=== PATIENT | female | born 1945 | race Caucasian/White ===

== ENCOUNTER 2024-08-31 14:57 | Emergency (ER) | payer MEDICARE, SELFPAY ==
[2024-08-31 15:10] VITALS: BP 121/92; PULSE 95; RESP 16; TEMP 36.6; O2SAT 99
--- NOTE | 2024-08-31 15:34 | ED.GENADULT ---
HPI - General Adult General Chief complaint: Allergic Reaction Stated complaint: Headache/Sore Throat Time Seen by Provider: 08/31/24 15:34 Source: patient Mode of arrival: ambulatory Limitations: no limitations History of Present Illness HPI narrative: 79-year-old female presented for complaint of heart racing about an hour prior to arrival. She attributes this to eating crab rangoon and/or drinking Coca-Cola. She states after her a 2nd crab rangoon and some cola, she felt heart racing, jittery, and the right side of the neck was 'thumping.' She also felt like the back of her tongue was tingling. Denies chest pain, shortness of breath, wheezing, lip, tongue, or throat swelling, shortness of breath nausea, vomiting, abdominal cramping or dizziness. Related Data Home Medications ?Medication ?Instructions ?Recorded ?Confirmed ?Last Taken ?Type alendronate 70 mg tablet 70 mg PO WEEKLY 08/31/24 08/31/24 Unknown History ketoconazole 2 % shampoo 1 applic topical Q14D 08/31/24 08/31/24 Unknown History Allergies Allergy/AdvReac Type Severity Reaction Status Date / Time codeine AdvReac Unknown Other Verified 08/31/24 15:06 Review of Systems Review of Systems: CONSTITUTIONAL: Denies body aches, fever, chills, or sweats. EYES: Denies visual changes, redness, or discharge. ENT: Denies rhinorrhea, congestion, sore throat, or otalgia. CARDIOVASCULAR: Denies chest pain, reports palpitations RESPIRATORY: Denies cough or dyspnea. GASTROINTESTINAL: Denies abdominal pain, nausea, vomiting, or diarrhea. NEUROLOGIC: Denies headache, numbness, tingling, or weakness. All systems reviewed & are unremarkable except as noted in HPI and below [facility] Comments At time of signature, I have reviewed and agree with nursing past medical, surgical, social and family history unless otherwise noted. Please see nursing chart for further information. There is no relevant family history pertinent to the presenting complaint Exam Narrative: GENERAL: Well-appearing, and in no acute distress. EYES: EOMI. No redness or drainage. Conjunctivae normal. ENT: Mucous membranes pink and moist. Throat normal. Uvula midline. NECK: Normal AROM. Supple. CHEST: No respiratory distress. Clear to auscultation. HEART: Irregular and tachycardic. No murmur appreciated. SKIN: Warm, dry, no rash. Capillary refill normal. Normal skin turgor. NEURO: No focal deficits. Alert and oriented x3. Gait steady. PSYCH: Normal affect. Course Course Emergency Course: Patient is aware of diagnosis, understands and agrees to treatment plan. Anticipatory guidance given. Patient agrees to follow-up as directed and is aware of reasons to seek care at the emergency department. Portions of this record may have been created with voice recognition software Level of Care: Express Care Visit Vital Signs Vital signs: Vital Signs Temperature 97.9 F 08/31/24 15:10 Pulse Rate 95 08/31/24 15:10 Respiratory Rate 16 08/31/24 15:10 Blood Pressure 121/92 H 08/31/24 15:10 Pulse Oximetry 99 08/31/24 15:10 Temperature 97.9 F 08/31/24 15:10 Pulse Rate 95 08/31/24 15:10 Respiratory Rate 16 08/31/24 15:10 Blood Pressure 121/92 H 08/31/24 15:10 Pulse Oximetry 99 08/31/24 15:10 Transfer Transfered to: [facility] Transportation: Other (Private vehicle) Transfer rationale: Pt is agreeable to transfer. Requests transfer to [facility] via private vehicle; declined ambulance. Risks of transportation reviewed with pt including injury, worsening of condition and . v/u. Friend will be driving pt; Report called to hospital, spoke with Dr Boyce, accepting physician. Pt is in stable condition at time of transfer. Advised to remain NPO and go directly to the hospital. Medical Decision Making MDM Narrative Medical decision making narrative: Results of EKG reviewed with patient. Atrial flutter rate 144. Advised ER transfer. Requests [facility]. Differential Diagnosis Differential Diagnosis: STEMI, AAA, PE, pneumothorax, cardiac tamponade, esophageal rupture, pneumonia, GERD, musculoskeletal pain, endocarditis, pericarditis, URI, bronchitis, anxiety, allergic reaction Vital Signs Vital Signs: Vital Signs Temperature 97.9 F 08/31/24 15:10 Pulse Rate 95 08/31/24 15:10 Respiratory Rate 16 08/31/24 15:10 Blood Pressure 121/92 H 08/31/24 15:10 Pulse Oximetry 99 08/31/24 15:10 Temperature 97.9 F 08/31/24 15:10 Pulse Rate 95 08/31/24 15:10 Respiratory Rate 16 08/31/24 15:10 Blood Pressure 121/92 H 08/31/24 15:10 Pulse Oximetry 99 08/31/24 15:10 reviewed ECG Data EKG #1: Attestation: I personally reviewed and interpreted this ECG as follows: (Atrial flutter, RVR rate 144, OH- QRS 84 QT/QTc 313/396) Discharge Plan Discharge Clinical Impression: Heart palpitations Patient Disposition: Acute Care Hospital Condition: Stable Patient Language: Belizean Prescriptions: No Action ketoconazole 2 % shampoo 1 applic TOPICAL Q14D alendronate 70 mg tablet 70 mg PO WEEKLY Follow-up/Referrals: PHYSICIAN,FABRICATOR [employer]NACE [Primary Care Provider] - Time of Disposition: 16:02
--- NOTE | 2024-08-31 15:40 | ECG_ITS ---
Test Date: 2024-08-31 15:45:35 Measurements Intervals [place] Rate: 144 P: 0 [place]: 0 QRS: 3 QRSD: 84 T: 45 QT: 313 QTc: 486 Interpretive Statements ATRIAL FLUTTER/TACHYCARDIA WITH RAPID VENTRICULAR RESPONSE CONSIDER INFERIOR INFARCT, AGE INDETERMINATE NONSPECIFIC ST & T-WAVE ABNORMALITY- LAT/HIGH LAT LEADS BASELINE ARTIFACT- II, III, AVF ABNORMAL ECG No previous ECG available for comparison Electronically Signed On 08-31-2024 16:26:33 CDT by Sami Ruiz D.O.
== END 2024-08-31 16:07 | disposition short-term general hospital (02) ==
PROVIDERS: Emergency Provider Nurse Practitioner Family
DX: R00.2 Palpitations (principal)
CPT/HCPCS: 93005; 93010; 99213; G0463

== ENCOUNTER 2024-08-31 16:28 | Emergency (ER) | payer MEDICARE, SELFPAY ==
--- NOTE | ~2024-08-31 | XR_ITS ---
CHEST RADIOGRAPH, PA AND LATERAL CLINICAL HISTORY: palpitations . COMPARISON: None available TECHNIQUE: PA and lateral views of the chest. FINDINGS The cardiomediastinal silhouette is unremarkable. The lungs are clear. Visualized osseous structures and soft tissues are unremarkable. IMPRESSION: No focal infiltrate or effusion. Reviewed, dictated and finalized at location A.
--- NOTE | 2024-08-31 16:31 | ECG_ITS ---
Test Date: 2024-08-31 16:38:03 Measurements Intervals [place] Rate: 82 P: 41 [place]: 181 QRS: -12 QRSD: 78 T: 14 QT: 350 QTc: 411 Interpretive Statements SINUS RHYTHM CONSIDER RIGHT VENTRICULAR CONDUCTION DELAY LOW QRS VOLTAGE IN PRECORDIAL LEADS VOLTAGE CRITERIA FOR LVH CONSIDER ANTERIOR INFARCT, AGE INDETERMINATE CONSIDER INFERIOR INFARCT, AGE INDETERMINATE BORDERLINE T WAVE ABNORMALITY- ANTERIOR LEADS BASELINE ARTIFACT- I, III, AVR, AVL, AVF ABNORMAL ECG Compared to ECG 08/31/2024 15:45:35 ATRIAL FLUTTER/TACHYCARDIA NO LONGER PRESENT Electronically Signed On 08-31-2024 16:42:33 CDT by Sami Ruiz D.O.
--- NOTE | 2024-08-31 17:28 | ED.ARRPALP ---
HPI - Arrhythmia/Palpitations General Chief Complaint: Arrhythmia/Palpitations <Renay Holman PA-C - Last Filed: 09/01/24 09:39> Stated Complaint: Sent from [facility]-Afib RVR-denies CP <Renay Holman PA-C - Last Filed: 09/01/24 09:39> Time Seen by Provider: 08/31/24 17:28 <Renay Holman PA-C - Last Filed: 09/01/24 09:39> Focused HPI: This is a 79 year old female that presents to the ER for palpitations. Reports felt like discomfort in her throat. Sundown like she could really feel her pulse going. This started this afternoon when she was about to eat lunch. She was seen at urgent care and sent to the ER for afib with RVR. No previous history of this. GENERAL: Elderly, well-nourished, and in no acute distress. HEAD: Normocephalic, atraumatic. CHEST: Clear to auscultation. ?No respiratory distress. HEART: Regular rate and rhythm.? NEURO: ?Alert and oriented x3. Patient screened in triage and initial orders placed.? ?Additional care and disposition to be based upon?diagnostic testing and treatment. <Renay Holman PA-C - Last Filed: 09/01/24 09:39> History of Present Illness HPI narrative: HPI as noted in medical screening exam. <Stefano Mendiola MD - Last Filed: 08/31/24 20:44> Related Data Home Medications: Home Medications ?Medication ?Instructions ?Recorded ?Confirmed ?Last Taken ?Type alendronate 70 mg tablet 70 mg PO WEEKLY 08/31/24 08/31/24 Unknown History ketoconazole 2 % shampoo 1 applic topical Q14D 08/31/24 08/31/24 Unknown History <Renay Holman PA-C - Last Filed: 09/01/24 09:39> Allergies/Adverse Reactions: Allergies Allergy/AdvReac Type Severity Reaction Status Date / Time codeine AdvReac Unknown Other Verified 08/31/24 15:06 <Renay Holman PA-C - Last Filed: 09/01/24 09:39> Review of Systems Review of Systems: All systems reviewed & are unremarkable except as noted in HPI and below <Stefano Mendiola MD - Last Filed: 08/31/24 20:44> PMFSH Past Medical History Medical History: Medical History No significant past medical history <Renay Holman PA-C - Last Filed: 09/01/24 09:39> Surgical History Surgical History: Surgical History No significant past surgical history <Renay Holman PA-C - Last Filed: 09/01/24 09:39> Social History Social History: Social History Smoking status: Never smoker Alcohol intake: never Substance use: never <Renay Holman PA-C - Last Filed: 09/01/24 09:39> Exam Narrative: GENERAL: Well-developed, well-nourished, and in no acute distress. HEAD: Normocephalic, atraumatic. EYES: PERRLA and EOMI. CHEST: Clear to auscultation. No respiratory distress. No wheezes rales or rhonchi HEART: Regular rate and rhythm. No murmur heard. Normal peripheral pulses. ABDOMEN: Soft, nontender, nondistended, normal active bowel sounds. EXTREMITIES: Normal range of motion. No edema. SKIN: Warm, dry, no rash. NEURO: Alert and oriented x3. No focal deficit. Moving all 4 limbs spontaneously PSYCH: Normal mood and affect. <Stefano Mendiola MD - Last Filed: 08/31/24 20:44> Course Course Emergency Course: 20:25 - Review of EKG done at urgent care shows patient was in atrial flutter with heart rate of 141 without ischemic changes. Repeat EKG today shows the patient was in sinus rhythm without ischemic changes. CBC unremarkable. Coags within normal limits. Chemistries normal. Chest x-ray unremarkable. CHADS2 Vasc score 3. HASBLED score 1. I shared decision-making conversation with the patient. She elected full dose aspirin. Will discharge with low-dose metoprolol and recommendation for primary care and cardiology follow-up. <Stefano Mendiola MD - Last Filed: 08/31/24 20:44> Vital Signs Vital signs: Vital Signs Temperature 97.5 F L 08/31/24 17:31 Pulse Rate 86 08/31/24 17:31 Respiratory Rate 16 08/31/24 17:31 Blood Pressure 128/76 08/31/24 17:31 Pulse Oximetry 100 08/31/24 17:31 Oxygen Delivery Room Air 08/31/24 17:31 Temperature 97.5 F L 08/31/24 17:31 Pulse Rate 72 08/31/24 21:20 Respiratory Rate 17 08/31/24 21:00 Blood Pressure 126/67 08/31/24 21:00 Pulse Oximetry 100 08/31/24 21:00 Oxygen Delivery Room Air 08/31/24 17:31 <Renay Holman PA-C - Last Filed: 09/01/24 09:39> Vital Signs Temperature 97.5 F L 08/31/24 17:31 Pulse Rate 86 08/31/24 17:31 Respiratory Rate 16 08/31/24 17:31 Blood Pressure 128/76 08/31/24 17:31 Pulse Oximetry 100 08/31/24 17:31 Oxygen Delivery Room Air 08/31/24 17:31 Temperature 97.5 F L 08/31/24 17:31 Pulse Rate 72 08/31/24 21:20 Respiratory Rate 17 08/31/24 21:00 Blood Pressure 126/67 08/31/24 21:00 Pulse Oximetry 100 08/31/24 21:00 Oxygen Delivery Room Air 08/31/24 17:31 <Stefano Mendiola MD - Last Filed: 08/31/24 20:44> MDM - Arrhythmia/Palpitations MDM Narrative Medical decision making narrative: Plan: Labs, EKG, rate control as indicated, reassess <Stefano Mendiola MD - Last Filed: 08/31/24 20:44> Differential Diagnosis Differential diagnosis: Likely palpitations, artial fibrillation, artial flutter, ventricular premature beats and other (Arrhythmia, metabolic abnormality, anemia, other) <Stefano Mendiola MD - Last Filed: 08/31/24 20:44> Lab Data Result diagrams: 08/31/24 17:51 08/31/24 17:51 <Renay Holman PA-C - Last Filed: 09/01/24 09:39> Labs: Lab Results 08/31/24 Range/Units 17:51 WBC 7.2 (4.5-10.0) K/mm3 RBC 4.36 (4.2-5.4) M/mm3 Hgb 13.8 (12.0-15.0) g/dL Hct 42.2 (37.0-47.0) % MCV 96.8 (80-100) fl MCH 31.7 (26-34) pg MCHC 32.7 (32-36) g/dl RDW 12.5 (11.5-14.5) % Plt Count 290 (150-375) k/mm3 MPV 10.6 H (7.4-10.4) fl Immature Gran % (Auto) 0.1 (0-0.5) % Neut % (Auto) 63.4 (45.5-73.1) % Lymph % (Auto) 27.4 (18.3-44.2) % [place] % (Auto) 7.6 (2.6-8.5) % Eos % (Auto) 0.8 (0-4.4) % Baso % (Auto) 0.7 (0.2-1.2) % Lymph # (Auto) 1.97 (0.9-3.2) K/mm3 [place] # (Auto) 0.6 (0.1-0.6) K/mm3 Eos # (Auto) 0.1 (0-0.3) K/mm3 Baso # (Auto) 0.1 (0.0-0.1) K/mm3 Abs Immat Gran (auto) 0.01 (0.00-0.031) K/mm3 Absolute Neuts (auto) 4.6 (1.3-6.7) K/mm3 Absolute Nucleated RBC 0.000 (0.0-0.012) K/mm3 Nucleated RBC % 0.0 (0.0-0.2) % PT 13.0 (11.1-14.7) Seconds INR 0.9 APTT 34.1 (22.3-36.8) Seconds Sodium 143 (137-145) mmol/L Potassium 3.7 (3.4-5.0) mmol/L Chloride 106 (98-107) mmol/L Carbon Dioxide 26 (22-30) mmol/L Anion Gap 11 (4-12) mmol/L BUN 13 (7-17) mg/dL Creatinine 0.71 (0.7-1.0) mg/dL Estim Creat Clear Calc 55 ml/min Estimated GFR > 60 (59 - ) Glucose 98 (65-110) mg/dL Calcium 9.4 (8.4-10.2) mg/dL Magnesium 2.2 (1.6-2.3) mg/dL Total Bilirubin 0.5 (0.2-1.3) mg/dL AST 29 (14-36) U/L ALT 21 (6-35) U/L Alkaline Phosphatase 63 (38-126) U/L Total Protein 8.0 (6.3-8.2) g/dL Albumin 4.7 (3.5-5.1) g/dL <Renay Holman PA-C - Last Filed: 09/01/24 09:39> Lab Results 08/31/24 Range/Units 17:51 WBC 7.2 (4.5-10.0) K/mm3 RBC 4.36 (4.2-5.4) M/mm3 Hgb 13.8 (12.0-15.0) g/dL Hct 42.2 (37.0-47.0) % MCV 96.8 (80-100) fl MCH 31.7 (26-34) pg MCHC 32.7 (32-36) g/dl RDW 12.5 (11.5-14.5) % Plt Count 290 (150-375) k/mm3 MPV 10.6 H (7.4-10.4) fl Immature Gran % (Auto) 0.1 (0-0.5) % Neut % (Auto) 63.4 (45.5-73.1) % Lymph % (Auto) 27.4 (18.3-44.2) % [place] % (Auto) 7.6 (2.6-8.5) % Eos % (Auto) 0.8 (0-4.4) % Baso % (Auto) 0.7 (0.2-1.2) % Lymph # (Auto) 1.97 (0.9-3.2) K/mm3 [place] # (Auto) 0.6 (0.1-0.6) K/mm3 Eos # (Auto) 0.1 (0-0.3) K/mm3 Baso # (Auto) 0.1 (0.0-0.1) K/mm3 Abs Immat Gran (auto) 0.01 (0.00-0.031) K/mm3 Absolute Neuts (auto) 4.6 (1.3-6.7) K/mm3 Absolute Nucleated RBC 0.000 (0.0-0.012) K/mm3 Nucleated RBC % 0.0 (0.0-0.2) % PT 13.0 (11.1-14.7) Seconds INR 0.9 APTT 34.1 (22.3-36.8) Seconds Sodium 143 (137-145) mmol/L Potassium 3.7 (3.4-5.0) mmol/L Chloride 106 (98-107) mmol/L Carbon Dioxide 26 (22-30) mmol/L Anion Gap 11 (4-12) mmol/L BUN 13 (7-17) mg/dL Creatinine 0.71 (0.7-1.0) mg/dL Estim Creat Clear Calc 55 ml/min Estimated GFR > 60 (59 - ) Glucose 98 (65-110) mg/dL Calcium 9.4 (8.4-10.2) mg/dL Magnesium 2.2 (1.6-2.3) mg/dL Total Bilirubin 0.5 (0.2-1.3) mg/dL AST 29 (14-36) U/L ALT 21 (6-35) U/L Alkaline Phosphatase 63 (38-126) U/L Total Protein 8.0 (6.3-8.2) g/dL Albumin 4.7 (3.5-5.1) g/dL <Stefano Mendiola MD - Last Filed: 08/31/24 20:44> Imaging Data Radiologist's impression: ITS Impressions Chest X-Ray 08/31/24 17:42 IMPRESSION: No focal infiltrate or effusion. <Renay Holman PA-C - Last Filed: 09/01/24 09:39> ECG Data EKG #1: Attestation: I personally reviewed and interpreted this ECG as follows: <Stefano Mendiola MD - Last Filed: 08/31/24 20:44> ECG completion date: 08/31/24 <Stefano Mendiola MD - Last Filed: 08/31/24 20:44> ECG completion time: 16:38 <Stefano Mendiola MD - Last Filed: 08/31/24 20:44> Prior ECG tracings: available for review <Stefano Mendiola MD - Last Filed: 08/31/24 20:44> Interpretation: Sinus rhythm, rate 82, normal axis, no ST segment elevations or T-wave inversions concerning for ischemia, normal intervals with QTC of 411. Compared to EKG done today at 15:45, atrial flutter is no longer present. <Stefano Mendiola MD - Last Filed: 08/31/24 20:44> Critical Care Time Critical Care Time Critical Care Time: No <Renay Holman PA-C - Last Filed: 09/01/24 09:39> Discharge Plan Discharge Clinical Impression: Heart palpitations Atrial flutter Qualifiers: Atrial flutter type: unspecified Qualified Code(s): I48.92 - Unspecified atrial flutter <Renay Holman PA-C - Last Filed: 09/01/24 09:39> Patient Disposition: Home <Renay Holman PA-C - Last Filed: 09/01/24 09:39> Condition: Stable <Renay Holman PA-C - Last Filed: 09/01/24 09:39> Instructions: Antibiotic Form, Atrial Flutter (ED), A-fib (Atrial Fibrillation) (ED) <Renay Holman PA-C - Last Filed: 09/01/24 09:39> Additional Instructions: You were seen in the emergency department. An EKG in Urgent Care showed atrial flutter. Your heart rhythm and rate is normal here. Your blood cell counts are normal. Your liver and kidney enzymes are normal. A chest x-ray was unremarkable. An EKG was not concerning for injury to the heart. I recommend metoprolol to control your heart rate and aspirin to reduce risk of stroke. I recommend following up with your primary care doctor and a surgical instrument repair specialist. If you develop chest pain, shortness of breath, loss of consciousness, or if you have other emergent concerns for life, limb, or eyesight, return to the emergency department. <Renay Holman PA-C - Last Filed: 09/01/24 09:39> Patient Language: Citizen Of [place] <Renay Holman PA-C - Last Filed: 09/01/24 09:39> Prescriptions: New metoprolol tartrate 25 mg tablet 12.5 mg PO BID Qty: 30 0RF aspirin 325 mg tablet 325 mg PO DAILY Qty: 60 0RF No Action ketoconazole 2 % shampoo 1 applic TOPICAL Q14D alendronate 70 mg tablet 70 mg PO WEEKLY <Renay Holman PA-C - Last Filed: 09/01/24 09:39> Follow-up/Referrals: Amauri Avina MD [Physician] - 1 Week Alves,Kodak Mcgovern MD [Non-Staff] - 2 Days PHYSICIAN,DRUM HANDLER [Primary Care Provider] - <Renay Holman PA-C - Last Filed: 09/01/24 09:39> Time of Disposition: 20:27 <Renay Holman PA-C - Last Filed: 09/01/24 09:39> 20:27 <Stefano Mendiola MD - Last Filed: 08/31/24 20:44>
[2024-08-31 17:31] VITALS: BP 128/76; PULSE 86; RESP 16; TEMP 36.4; O2SAT 100
--- OUTSIDE RECORDS SUMMARY | 2024-08-31 18:00 | XMS_ITS | Clinical Summary ---
Author Organization [facility] Address [address] [place] [address] Care Team Providers Care Wet Roller Name Role Phone Kodak Alves MD Primary Care Provider [phone] Source Comments [facility],non-owned Affiliates and Associated Physician Practices is amultiple site organization consisting of ambulatory clinics and hospital sitesin [place], [place]. This disclosure is being madepursuant to the Care Everywhere program and may not contain all information available regarding this patient. Last updated 18.[facility] Allergies No known active allergies Medications * Be aware that medications may not be up to date on this document. Alwaysverify current medications with the patient. Medication Sig Dispensed Refills Start Date End Date Status GLUCOSAMINE COMPLEX PO Take by mouth. Active ALEVE PO Take by mouth. Active norethindrone-ethinyl estradiol (FEMHRT 05/31) 1-5 MG-MCG tablet Take 1 Tab by mouth daily. 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 Pulse 70 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 Temperature - - Respiratory Rate - - Oxygen Saturation - - Inhaled Oxygen Concentration - - Weight 67.1 kg (148 lb) 08/30/2023 10:11 AM CDT Height 167.6 cm (5' 6 ) 08/30/2023 10:11 AM CDT Body Mass Index 23.89 08/30/2023 10:11 AM CDT Plan of Treatment Upcoming Encounters Date Type Department Care Team (Late st Contact Info) Description 09/01/2024 11:00 AM CDT Appointment [facility] [address] [place] [address] Health Maintenance Due Date Last Done Comments BONE DENSITY TESTING 1945 MEDICARE AWV 12 MONTHS 1945 HEPATITIS C SCREENING 08/22/1964 DTAP/TDAP/TD VACCINES (1 - Tdap) 1965 PNEUMOCOCCAL VACCINE 50+ (1 of 1 - PCV) 1996 ZOSTER VACCINE (1 of 2) 1996 Respiratory Syncytial Virus (RSV) Vaccine Pt: or over 60 yrs (1 - 1-dose 75+ series) 2021 COVID-19 VACCINE (2 - season) 2024 02/22/2021 DEPRESSION SCREENING 05/27/2024 INFLUENZA VACCINE (Season Ended) 2025 03/16/2021, 02/24/2018, 03/25/2017, Additional history exists HEPATITIS B VACCINE Aged Out No longe r eligible based on patient's age to complete this topic HIB VACCINE Aged Out No longer eligi ble based on patient's age to complete this topic HPV VACCINE Aged Out No longer eligi ble based on patient's age to complete this topic MENINGOCOCCAL (Group B) VACCINE SHARED DECISION-MAKING Aged Out No longer eligible based on patient's age to complete this topic MENINGOCOCCAL GROUPS A/C/Y/W VACCINE Aged Out No longer eligible based on patient's age to complete this topic Care Teams Wet Roller Relationship Specialty Start Date End Date Kodak Alves MD [address] [place] [address] [address] [place] [address] PCP - General 01/03/10
--- OUTSIDE RECORDS SUMMARY | 2024-08-31 18:00 | XMS_ITS | Encounter Summary ---
Author Organization [facility] Address [address] [place] [address] Care Team Providers Care Engineer/Conductor Name Role Phone Kodak Alves MD Primary Care Provider [phone] Encounter Details Date Type Department Care Team (Late Contact Info) Description 04/04/2023 Lab Requisition [facility] - DermPath Lab [address] [place] [id number] Kelby Collazo MD [address] [place] [address] Social History Tobacco Use Types Packs/Day Years Used Date Smoking Tobacco: Never Alcohol Use Standard Drinks/Week Comments No 0 (1 standard drink = 0.6 oz pur e alcohol) Sex and Gender Information Value Date Recorded Sex Assigned at Not on file Gender Identity Not on file Sexual Orientation Not on file documented as of this encounter Plan of Treatment Upcoming Encounters Date Type Department Care Team (Late Contact Info) Description 09/01/2024 11:00 AM CDT Appointment [facility] [address] [place], [place] [id number] documented as of this encounter Procedures Procedure Name Priority Date/Time Associated Diagnosis Comments DERMATOPATHOLOGY Routine 04/03/2023 12:0 0 AM METER AND REGULATOR [employer]OP SUPERVISOR documented in this encounter Results * DERMATOPATHOLOGY (04/03/2023 12:00 AM METER AND REGULATOR SHOP SUPERVISOR) Case Report Dermatopathology Report Case: [id number] Authorizing Provider: Kelby Collazo MD Collected: 04/03/2023 12:00 AM Ordering Location: [facility] D[facility] Lab Received: 04/04/2023 04:34 PM Pathologist: Luisa Mittal MD Specimen: Skin, frontal scalp (part line) 1:47 PM METER AND REGULATOR [employer]OP SUPERVISOR DERMATOPATHOLOGY LABORATORY Final Diagnosis Specimen A. SKIN, frontal scalp (part line): BASAL CELL CARCINOMA, NODULAR TYPE (C44.41) 1:47 PM METER AND REGULATOR SHOP SUPERVISOR DERMATOPATHOLOGY LABORATORY Clinical History [facility] Path# [id number] 1:47 PM METER AND REGULATOR SHOP SUPERVISOR DERMATOPATHOLOGY LABORATORY Gross Description Specimen A: Received is one formalin filled container labeled with the patient's name and designated frontal scalp (part line). The specimen consists of a shave biopsy measuring 6x5x1 mm. Jar 0. 1:47 PM METER AND REGULATOR SHOP SUPERVISOR DERMATOPATHOLOGY LABORATORY Microscopic Description Specimen A. SKIN, frontal scalp (part line): Within the dermis there are aggregates of basaloid cells with a high nuclear to cytoplasmic ratio and peripheral palisading. 1:47 PM METER AND REGULATOR SHOP SUPERVISOR DERMATOPATHOLOGY LABORATORY Disclaimer An external and internal positive and negative controls are appropriate for the histochemical, immunohistochemical and immunofluorescence stain(s) in this case (if any), except where stated explicitly. The performance characteristics of the stain(s) cited in this report were developed and its performance characteristic determined by the Dermatopathology Laboratory at [facility], directed by Dr. Jeff Altamirano. These tests need not be, and therefore are not, approved by the [place] Food and Drug Administration. The tests are used for clinical purposes. Billing Codes Specimen Charges Stain Charges 58439 1 1:47 PM [facility] DERMATOPATH[facility]AT[facility] Embedded Images 1:47 PM [facility] DERMATOPATHOLOGY [facility]ORATORY Pathology/Cytolog y TISSUE SPECIMEN FROM SKIN / Unknown 04/03/2023 04/04/2023 4:34 PM METER AND REGULATOR SHOP SUPERVISOR Kelby Collazo MD LAB - PATHOLOGY/CYTO LOGY ORDERABLES DERMATOPATHOLOGY LABORATORY [facility] - Department of Dermatology [facility] Specialized Medicine [facility] [facility] [phone] documented in this encounter Visit Diagnoses Not on filedocumented in this encounter Care Teams Engineer/Conductor Relationship Specialty Start Date End Date Kodak Alves MD [facility] [place] [address] PCP - General 01/03/10 documented as of this encounter
--- OUTSIDE RECORDS SUMMARY | 2024-08-31 18:00 | XMS_ITS | CONTINUITY OF CARE DOCUMENT ---
Author Name charles lindseyjosé Address Unknown Organization [facility] Address [address] [place] [address] [address] [place] [address] Phone [phone] Care Team Providers Care Gate Cutter Name Role Phone Dennis SPRAGUE, Audelia Unavailable [phone] DANIELLE SPRAGUE, AVTAR Unavailable [phone] DANIELLE SPRAGUE, AVTAR Unavailable [phone] PROBLEMS Condition Status Date Provider Notes Palpitations active Mary Warren Arthritis active Audelia Collins MD Preoperative cardiovascular evaluation active Audelia Collins MD ENCOUNTERS Date Type Provider Location Encounter Diag nosis - In-person encounter Office Visit Audelia Collins MD [place] [facility] ArthritisPreoperative cardiovascular evaluation VITAL SIGNS Date Observation Value Provider Body Mass Index (Ratio) 22.24 kg/m2 Isiah Collins MD blood pressure, cuff size regular Ke sailaja Watson blood pressure, diastolic 80 mm[Hg] Zoltan Watson blood pressure, systolic 110 mm[Hg] Marcus Watson oxygen saturation, oximetry 98 % Eugenia Watson respiratory rate E&M 14 /min Eugenia nair pulse rate 72 /min Eugenia saeed weight E&M 142 [lb_av] Eugenia waller height E&M 67 [in_i] Eugenia De La [place] lder ALLERGIES Allergy Name Onset Date Reaction Criticality Status OPIOID High Criticality active HISTORY OF MEDICATION USE No Known Medication SOCIAL HISTORY Date Observation Value Provider social history E&M S moking History: Liban squires has never smoked. Erwin Mascorro social history reviewed E&M revi ewed - no changes required Erwin Mascorro smoking status Never smoker Eugenia pandya INSURANCE PROVIDERS Payer name Policy type / Coverage type [place] red republican ID [employer] Commercial insurance drew ri [id number] [place] Medicare [id number] ADVANCE DIRECTIVES Name Date DISCUSSED - NO DECISION MADE TREATMENT PLAN Date Name Performer [id number],S, Erwin De Jesus i [id number],S, Erwin De Jesus i [id number],S, Erwin De Jesus i Cardiology Erwin Mascorro Cardiology Erwin Mascorro Cardiology Erwin Mascorro Date Name Complete Echo
--- OUTSIDE RECORDS SUMMARY | 2024-08-31 18:01 | XMS_ITS | Continuity of Care Document ---
Author Organization [facility] Address [address] [place] [address] Phone Care Team Providers Care Information Tech Name Role Phone [facility] Unavailable Unavail able Mine David Unavailable Unavailable Procedures Procedure Date Progressive Lens, Polycarb Post-op Follow-up Visit Refraction Post-op Follow-up Visit Remove Cataract, Insert Lens Office/outpatient Visit, Est IOLMaster No Charge Glasses Check Vision Svcs Frames Purchases SV Poly Carb Sph [place] To +/- 4 010 Tax - Medical [facility] Frames Purchases Progressive Lens, Polycarb BF Polycarb Sphcyl [place] To +/-4d .12-2d Anti-reflective Coating Miscellaneous Vision Service - Supplies Lens-Index 1.54-1.79 Glass Office/outpatient Visit, Est Special Reports Or Forms Office Consultation Ophthalmoscopy Eye Exam & Treatment Eye Exam & Treatment Refraction Advance Directives Directive Yes / No Effective Date File Name No Information Encounters Encounter Description Practice Location Reason(s) For Visit Diagnoses Date Provider Providers Copied on [facility]counter [facility], [address], [place], [place], [address], [place] tel:[phone] [facility] No Information Evan-0 9-201 0 [facility] . [address], [address], [place], [place], [address], [place]. tel:[phone] Referring Provider: Sohail Harvey OD A, [address], [place], [place], [facility]. tel:[phone] g Provider: Mine David, [address] [place], [address]. tel:[phone] [facility], [address] [place] [address] [address], [place], [place], [address], [place] tel:[phone] [facility] No Information May-2 8-201 0 Harvey OD Sohail. [address] , [address], [place], [place], [facility], [place]. tel:[phone] [facility], [address] [place] [address] [address], [place], [place], [address], [place] tel:[phone] [facility] No Information September-1 2-201 0 Doisy Edsherine. [address] , [address], [place], [address], [place]. tel:[phone] [facility], [address] [place] [address] [address], [place], [place], [address], [place] tel:[phone] [facility] No Information May-1 1-201 0 Doisy Edward. [address] , [address], [place], [address], [place]. tel:[phone] Office/outpati ent Visit, [facility], [address] [place] [address] [address], [place], [place], [address], [place] tel:[phone] [facility] No Information Aug-2 6-201 0 Doisy Edsherine. [address] , [address], [place], [address], [place]. tel:[phone] Referring Provider: Johann Weinberg, [address], [place], [address]. tel:[phone] [facility], [address] [place] [address] [address], [place], [place], [address], [place] tel:[phone] [facility] No Information 0 Dilcia Wills. [address] , [address], [place], [address], [place]. tel:[phone] [facility], [address] [place] [address] [address], [place], [place], [address], [place] tel:[phone] [facility] No Information 0 [facility] . [address] [facility], [facility] [address], [place], [address], . tel:[phone] [facility], [address] [place] [address] [address], [place], [place], [address], [place] tel:[phone] [facility] No Information 9 [facility] . [address] [facility], [address], [place], [place], [address], . tel:[phone] Referring Provider: Sohail Weinberg, [address], [place], [address]. tel:[phone] g Provider: Mine David, [address] [place], [address]. tel:[phone] Office/outpati ent Visit, [facility], [address] [place] [address] [address], [place], [place], [address], [place] tel:[phone] [facility] No Information -200 9 Dilcia Wills. [address] , [address], [place], [address], [place]. tel:[phone] [facility], [address] [place] [address] [address], [place], [place], [address], tel:[phone] [place] [address] No Information Evan-1 2-200 9 Jordin Valderrama. [address] [place], [place], [facility], . tel:[phone] Office Consultation [facility], [address] [place] [address] [address], [place], [place], [address], tel:[phone] [facility] No Information Evan-0 8-200 9 Jordin Valderrama. [address] [place], [place], [facility], . tel:[phone] Referring Provider: Sohail Weinberg, [facility] [address], [place], [place], [facility]. tel:[phone] [facility], [address] [place] [address] [address], [place], [place], [address], [phone] [facility] No Information Evan-0 5-200 9 Harvey OD Sohail. [facility], [place], [place], [facility], . tel:[phone] [facility], [address] [place] [address] [address], [place], [place], [address], [phone] [facility] No Information May-0 8-200 8 Harvey OD Sohail. [facility] , [address], [place], [place], [facility], . tel:[phone] Family History Family Member Type Diagnosis Age At Onset No Information Payers Payer name Insurance type Covered democrat ID Authoriza tion(s) No Information Social History Type Description Quantity Date Captured Comments Sex Female Smoking Status No Information Chief Complaint And Reason For Visit No Information Reason For Referral Reason For Referral No Information History Of Present Illness Encounter Date Complaint History Of Prese nt Illness No Information Functional Status Date Functional Assessmen t No Information Instructions Date Instruction Additional Infor mation No Information Assessments Type Assessment Date No Information Patient Care Teams Name Effective Dates (start - stop) Status Members No Information
--- OUTSIDE RECORDS SUMMARY | 2024-08-31 18:01 | XMS_ITS | Data Portability ---
Author Organization [place] [facility], Main Office Address [address] [place] [address] Care Team Providers Care Scrap Dealer Name Role Phone AVTAR ALVES Primary Care Provider AVTAR ALVES Referring Provider [phone] Assessment No assessment recorded. Plan of Treatment Reminders Order Date Submit Date Provider Last Modified By Organization Details Last Modified Time Details Appointments None recorded. Lab lipid panel, serum 024 ROSLYN [facility], [address] , [place], [address], 4 05:46:04 CMP, serum or plasma 024 ROSLYN [facility], [address], [place], [address], 4 05:46:06 vitamin D, 25-hydrox y, total, serum 024 [email or web address] [facility], [address] , [place], [address], 4 15:56:00 CBC w/ auto diff 024 [email or web address] [facility], [address], [place], [address], 4 15:56:00 vitamin B12, serum 024 ROSLYN [facility], [address] , [place], [address], 4 05:46:09 TSH + free T4, serum 024 024 ROSLYN [facility], [address], [place], [address], 4 05:46:05 Referral None recorded. Procedures None recorded. Surgeries None recorded. Imaging None recorded. Medication Orders None recorded. Patient TargetsNo targets recorded. Patient Instructions Encounter Date Encounter Id Patient Instructions Last Modified By Organization Details Last Modified Time 08/10/2022 [id number] dementia rating scale-2* Not available 08/10/2022 15:49:04 alcohol misuse* [email or web address] Not available 08/10/2022 15:49:04 depression screening* [email or web address] Not available 08/10/2022 15:49:04 Timed Up and Go test (TUG)* [email or web address] Not available 08/10/2022 15:49:04 multi-dimensiona l health assessment questionnaire* Not available 08/10/2022 15:49:04 Personalized Hea lth Plan and Screening Recommendations Advance Directives - Do you have one? Yes Advance Directives - Do we have your advance directive on file in your health record? No, please bring in a copy at your earliest convenience Primary Prevention/Interven tion (prevents or decreases the chance of common diseases from occurring) Smoking Risk: Non Smoker Alcohol Misuse Screening: Negative Weight: Appropriate Physical activity: Need more exercise/physical activity Nutrition: Good Average Fall Risk (screened today): Low Intermediate Vaccines Pneumococcal: Ordered Recommended today Recommended today, but you have declined No further needed Influenza: Your next one in the fall of this year Chronic Disease Risks Stroke: Low Risk I have no recommendations Heart Attack: Low risk I have no recommendations Clogging of the Arteries: Low risk I have no recommendations Diabetes: Low Risk I have no recommendations Secondary Prevention/Interven tion (detects treatable diseases before they may cause symptoms, disability, or ) Breast Cancer Screening with mammogram: Cervical/Uterine/Ov americo Cancer Screening: No screening necessary Osteoporosis Screening: Date Screening Last Performed: Colon Cancer Screening: Colonoscopy Date Screening Last Performed: Eye Disease Screening: Dementia Risk: Low I have no recommendations Depression Screening: Negative [email or web address] Not available 08/10/2022 15:42:36 Medicare wellnes s evaluation risk assessment stable. Will check a Holter monitor as well as an echocardiogram to assess left ventricular function. Consider Cardiology evaluation. Echocardiogram for LV function for exertional dyspnea Holter monitor 48 hours minimum for palpitation Not available 08/10/2022 15:48:39 12/11/2022 [id number] Degenerative arthritis clinically stable. Continue on current Rx did briefly discuss the possible use of statin medications for marginally elevated cholesterol etc.. Otherwise is doing well. Continue on current Rx and follow-up in six months. [email or web address] Not available 12/11/2022 11:06:35 06/11/2023 [id number] Osteopenia clinically stable. Does need blood work since it has been over a year. Will check blood work consisting of CBC, CMP, lipid, thyroid and vitamin-D level. Continue on current Rx and follow-up in six months Portions of the record may have been created with voice recognition software. Occasional wrong-word or s ound-a-like substitutions may have occurred due to the inherent limitations of voice recognition software. Read the chart carefully and recognize, using context, where substitutions have occurred. [email or web address] Not available 06/11/2023 11:36:16 12/12/2023 [id number] Follow-up osteopenia. No interval complaints of any significant joint or other associated symptomatology. Has had pain discomfort in the left shoulder. Will obtain radiographic studies at this area. Likely is a subacromial bursitis. Will also set her up with some physical therapy for the shoulder. Is clinically stable otherwise. Was also instructed to start on some Aleve for the discomfort. Additional Orders and/or Directives: 1. Cologuard 2. Bone density scan 3. X-ray of the left shoulder 4. set up with physical therapy left shoulder pain Next Appointment: 6 Months Approximate Date: 06/09/2024 Portions of the record may have been created with voice recognition software. Occasional wrong-word or s ound-a-like substitutions may have occurred due to the inherent limitations of voice recognition software. Read the chart carefully and recognize, using context, where substitutions have occurred. [email or web address] Not available 12/12/2023 11:09:20 Reason for Referral None Reported. Results Created Date Observation Date Name Description Value Unit Range Abnormal Flag Note LastModifiedBy Organization Detail LastModifiedTime 06/09/19 23 06/10/2022 VITAM IN D,25- OH,TO EDUARDA,I A vitamin D,25-oh,tota l,ia 30 NG/mL 30-100 normal Vitam in D Statu s 25-OH Vitam in D: Defic iency : <20 ng/mL Insuf ficie ncy: 20 - 29 ng/mL Optim al: > or = 30 ng/mL For 25-OH Vitam in D testi ng on patie nts on D2-sanders pplem entat ion and patie nts for whom quant itati on of D2 and D3 fract ions is requi red, the [facility] Ass[facility] eD(TM ) 25-OH VIT D, (D2,D 3), LC/MS /MS is recom maggie d: order code 78400 (lovely ents >2yrs ). See Note 1 Note 1 For addit ional infor niki hawk refer to http: //lianet Lee stDia gnost ics.c om/fa q/FAQ 199 (This link is being provi ded for infor stas titus/ jing reza purpo ses only. ) Not Available [facility] [address] [place], [address], 06/10/2022 09:55:56 06/09/1906/10/2022 TSH TSH 3.44 mIU/L 0.40-4 .50 normal Not Available [facility] [address], [address], 06/10/2022 09:55:55 06/09/1906/10/2022 T4, FREE T4, free 1.0 NG/dL 0.8-1. 8 normal Not Available [facility] [address], [address], 06/10/2022 09:55:55 06/09/1906/10/2022 CBC (INCL UDES DIFF/ PLT) white blood cell count 4.9 thous and/u L 3.8-10 .8 normal Not Available [facility] [address] [place], [address], 06/10/2022 09:55:54 06/09/19 23 06/10/2022 CBC (INCL UDES DIFF/ PLT) red blood cell count 4.33 kerline on/uL 3.80-5 .10 normal Not Available [address], [address], 06/10/2022 09:55:54 06/09/19 23 06/10/2022 CBC (INCL UDES DIFF/ PLT) hemoglobin 13.4 g/dL 11.7-1 5.5 normal Not Available [address], [address], 06/10/2022 09:55:54 06/09/1906/10/2022 CBC (INCL UDES DIFF/ PLT) hematocrit 41.0 % 35.0-4 5.0 normal Not Available [address], [address], 06/10/2022 09:55:54 06/09/1906/10/2022 CBC (INCL UDES DIFF/ PLT) MCV 94.7 fL 80.0-1 00.0 normal Not Available [address], [address], 06/10/2022 09:55:54 06/09/1906/10/2022 CBC (INCL UDES DIFF/ PLT) MCH 30.9 pg 27.0-3 3.0 normal Not Available [address], [address], 06/10/2022 09:55:54 06/09/1906/10/2022 CBC (INCL UDES DIFF/ PLT) MCHC 32.7 g/dL 32.0-3 6.0 normal Not Available [address], [address], 06/10/2022 09:55:54 06/09/19 23 06/10/2022 CBC (INCL UDES DIFF/ PLT) RDW 12.5 % 11.0-1 5.0 normal Not Available [address], [address], 06/10/2022 09:55:54 06/09/1906/10/2022 CBC (INCL UDES DIFF/ PLT) platelet count 286 thous and/u L 140-40 0 normal Not Available [address], [address], 06/10/2022 09:55:54 06/09/1906/10/2022 CBC (INCL UDES DIFF/ PLT) MPV 10.5 fL 7.5-12 .5 normal Not Available [address], [address], 06/10/2022 09:55:54 06/09/1906/10/2022 CBC (INCL UDES DIFF/ PLT) absolute neutrophils 3009 cells /uL 1500-7 800 normal Not Available [address], [address], 06/10/2022 09:55:54 06/09/1906/10/2022 CBC (INCL UDES DIFF/ PLT) absolute lymphocytes 1485 cells /uL 850-39 00 normal Not Available [address], [address], 06/10/2022 09:55:54 06/09/1906/10/2022 CBC (INCL UDES DIFF/ PLT) absolute monocytes 319 cells /uL 200-95 0 normal Not Available [address], [address], 06/10/2022 09:55:54 06/09/1906/10/2022 CBC (INCL UDES DIFF/ PLT) absolute eosinophils 49 cells /uL 15-500 normal Not Available [address], [address], 06/10/2022 09:55:54 06/09/19 23 06/10/2022 CBC (INCL UDES DIFF/ PLT) absolute basophils 39 cells /uL 0-200 normal Not Available [facility] [address], [address], 06/10/2022 09:55:54 06/09/19 23 06/10/2022 CBC (INCL UDES DIFF/ PLT) neutrophils 61.4 % normal Not Available [facility] [address], [address], 06/10/2022 09:55:54 06/09/19 23 06/10/2022 CBC (INCL UDES DIFF/ PLT) lymphocytes 30.3 % normal Not Available [facility] [address], [address], 06/10/2022 09:55:54 06/09/19 23 06/10/2022 CBC (INCL UDES DIFF/ PLT) monocytes 6.5 % normal Not Available [facility] [address], [address], 06/10/2022 09:55:54 06/09/19 23 06/10/2022 CBC (INCL UDES DIFF/ PLT) eosinophils 1.0 % normal Not Available [facility] [address], [address], 06/10/2022 09:55:54 06/09/1906/10/2022 CBC (INCL UDES DIFF/ PLT) basophils 0.8 % normal Not Available [facility] [address], [address], 06/10/2022 09:55:54 06/09/1906/10/2022 COMPR EHENS DAVY METAB OLIC PANEL glucose 94 mg/dL 65-99 normal Fasti ng refer ence inter ned Not Available [facility] [address], [address], 06/10/2022 09:55:54 06/09/19 23 06/10/2022 COMPR EHENS DAVY METAB OLIC PANEL urea nitrogen (BUN) 15 mg/dL 7-25 normal Not Available [address], [address], 06/10/2022 09:55:54 06/09/19 23 06/10/2022 COMPR EHENS DAVY METAB OLIC PANEL creatinine 0.73 mg/dL 0.60-1 .00 normal Not Available [address], [address], 06/10/2022 09:55:54 06/09/19 23 06/10/2022 COMPR EHENS DAVY METAB OLIC PANEL eGFR 86 mL/mi n/1.7 3m2 > or = 60 normal The eGFR is based on the CKD-E PI 2020 equat ion. To calcu late the new eGFR from a previ ous Creat inine or Cysta tin C resul t, go to https ://jennifer hicks.shilpa fairchild/jeanie javier s/ kdoqi /gfr% 5Fcal culat or Not Available [address], [address], 06/10/2022 09:55:54 06/09/19 23 06/10/2022 COMPR EHENS DAVY METAB OLIC PANEL BUN/creatini ne ratio not applic able (calc ) 6-22 Not Available [address], [address], 06/10/2022 09:55:54 06/09/19 23 06/10/2022 COMPR EHENS DAVY METAB OLIC PANEL sodium 143 mmol/ L 135-14 6 normal Not Available [address], [address], 06/10/2022 09:55:54 06/09/19 23 06/10/2022 COMPR EHENS DAVY METAB OLIC PANEL potassium 4.7 mmol/ L 3.5-5. 3 normal Not Available [facility] [address] [place], [address], 06/10/2022 09:55:54 06/09/19 23 06/10/2022 COMPR EHENS DAVY METAB OLIC PANEL chloride 108 mmol/ L 98-110 normal Not Available [facility] [address], [address], 06/10/2022 09:55:54 06/09/19 23 06/10/2022 COMPR EHENS DAVY METAB OLIC PANEL carbon dioxide 29 mmol/ L 20-32 normal Not Available [address], [address], 06/10/2022 09:55:54 06/09/19 23 06/10/2022 COMPR EHENS DAVY METAB OLIC PANEL calcium 9.5 mg/dL 8.6-10 .4 normal Not Available [address], [address], 06/10/2022 09:55:54 06/09/19 23 06/10/2022 COMPR EHENS DAVY METAB OLIC PANEL protein, total 6.6 g/dL 6.1-8. 1 normal Not Available [address], [address], 06/10/2022 09:55:54 06/09/19 23 06/10/2022 COMPR EHENS DAVY METAB OLIC PANEL albumin 4.2 g/dL 3.6-5. 1 normal Not Available [facility] [address], [address], 06/10/2022 09:55:54 06/09/19 23 06/10/2022 COMPR EHENS DAVY METAB OLIC PANEL globulin 2.4 g/dL_ (calc ) 1.9-3. 7 normal Not Available [facility] [address], [address], 06/10/2022 09:55:54 06/09/19 23 06/10/2022 COMPR EHENS DAVY METAB OLIC PANEL albumin/glob ulin ratio 1.8 (calc ) 1.0-2. 5 normal Not Available [address], [address], 06/10/2022 09:55:54 06/09/19 23 06/10/2022 COMPR EHENS DAVY METAB OLIC PANEL bilirubin, total 0.6 mg/dL 0.2-1. 2 normal Not Available [address], [address], 06/10/2022 09:55:54 06/09/19 23 06/10/2022 COMPR EHENS DAVY METAB OLIC PANEL alkaline phosphatase 64 U/L 37-153 normal Not Available [address], [address], 06/10/2022 09:55:54 06/09/19 23 06/10/2022 COMPR EHENS DAVY METAB OLIC PANEL AST 21 U/L 10-35 normal Not Available [address], [address], 06/10/2022 09:55:54 06/09/19 23 06/10/2022 COMPR EHENS DAVY METAB OLIC PANEL ALT 18 U/L 6-29 normal Not Available [address], [address], 06/10/2022 09:55:54 06/09/19 23 06/10/2022 LIPID PANEL , STAND PJ cholesterol, total 235 mg/dL <200 high Not Available [address], [address], 06/10/2022 09:55:54 06/09/19 23 06/10/2022 LIPID PANEL , STAND PJ HDL cholesterol 64 mg/dL > or = 50 normal Not Available [address], [place], [address], 06/10/2022 09:55:54 06/09/19 23 06/10/2022 LIPID PANEL , STAND PJ triglyceride s 158 mg/dL <150 high Not Available [facility] [address], [address], 06/10/2022 09:55:54 06/09/19 23 06/10/2022 LIPID PANEL , STAND PJ LDL-choleste rol 142 mg/dL _(jose c) high Refer ence range : <100 Bhavya able range <100 mg/dL for prima ry preve ntion ; <70 mg/dL for patie nts with CHD or diabe tic patie nts with > or = 2 CHD risk facto rs. LDL-C is now calcu lated using the Ester n-Hop kins calcu brandon n, which is a valid ated novel codio [place] granti mckenzie phante r accur acy than the Fried gopal equat ion in the estim ation of LDL-C . Ester block SS et al. DEEPTI. 2013; 310(1 9): 2061- 2068 (http ://ed ucati on.Qu [employer]. com/f aq/FA Q164) Not Available [address], [address], 06/10/2022 09:55:54 06/09/1906/10/2022 LIPID PANEL , STAND PJ chol/HDLC ratio 3.7 (calc ) <5.0 normal Not Available [address], [address], 06/10/2022 09:55:54 06/09/1906/10/2022 LIPID PANEL , STAND PJ non HDL cholesterol 171 mg/dL _(jose c) <130 high For patie nts with diabe bill plus 1 major ASCVD risk facto r, treat ing to a non-H DL-C goal of <100 mg/dL (LDL- C of <70 mg/dL ) is consi dered a thera brigitte c optio n. Not Available [facility] [address] [address] [place], [address], 06/10/2022 09:55:54 07/26/19 24 07/27/2023 LIPID PANEL , STAND PJ cholesterol, total 232 mg/dL <200 high Not Available [facility] [address] [address] [place], [address], 07/27/2023 05:46:04 07/26/19 24 07/27/2023 LIPID PANEL , STAND PJ HDL cholesterol 60 mg/dL > or = 50 normal Not Available [facility] [address] [address] [place], [address], 07/27/2023 05:46:04 07/26/19 24 07/27/2023 LIPID PANEL , STAND PJ triglyceride s 111 mg/dL <150 normal Not Available [facility] [address] [address] [address], [place], [address], 07/27/2023 05:46:04 07/26/19 24 07/27/2023 LIPID PANEL , STAND PJ LDL-choleste rol 149 mg/dL _(jose c) high Refer ence range : <100 Bhavya able range <100 mg/dL for prima ry preve ntion ; <70 mg/dL for patie nts with CHD or diabe tic patie nts with > or = 2 CHD risk facto rs. LDL-C is now calcu lated using the Ester n-Hop kins calcu brandon n, which is a valid ated novel metho d provi mckenzie collins r accur acy than the Fried gopal equat ion in the estim ation of LDL-C . Ester block SS et al. DEEPTI. 2013; 310(1 9): 2061- 2068 (http ://ed ucati on.Qu Rio vazquez [employer].ios. com/f aq/FA Q164) Not Available [facility] [address] [address] [place], [address], 07/27/2023 05:46:04 07/26/19 07/27/2023 LIPID PANEL , STAND PJ chol/HDLC ratio 3.9 (calc ) <5.0 normal Not Available [address], [address], 07/27/2023 05:46:04 07/26/19 24 07/27/2023 LIPID PANEL , STAND PJ non HDL cholesterol 172 mg/dL _(jsoe c) <130 high For patie nts with diabe bill plus 1 major ASCVD risk facto r, treat ing to a non-H DL-C goal of <100 mg/dL (LDL- C of <70 mg/dL ) is consjulio ormeo n. Not Available [address], [address], 07/27/2023 05:46:04 07/26/19 24 07/27/2023 TSH+F REE T4 TSH 3.47 mIU/L 0.40-4 .50 normal Not Available [address], [address], 07/27/2023 05:46:05 07/26/19 24 07/27/2023 TSH+F REE T4 T4, free 1.0 NG/dL 0.8-1. 8 normal Not Available [address], [address], 07/27/2023 05:46:05 07/26/19 24 07/27/2023 COMPR EHENS DAVY METAB OLIC PANEL glucose 90 mg/dL 65-99 normal Fasti ng refer ence inter ned Not Available [address], [address], 07/27/2023 05:46:06 07/26/19 24 07/27/2023 COMPR EHENS DAVY METAB OLIC PANEL urea nitrogen (BUN) 19 mg/dL 7-25 normal Not Available [address], [address], 07/27/2023 05:46:06 07/26/19 24 07/27/2023 COMPR EHENS DAVY METAB OLIC PANEL creatinine 0.73 mg/dL 0.60-1 .00 normal Not Available [address], [address], 07/27/2023 05:46:06 07/26/19 24 07/27/2023 COMPR EHENS DAVY METAB OLIC PANEL eGFR 85 mL/mi n/1.7 3m2 > or = 60 normal Not Available [address], [address], 07/27/2023 05:46:06 07/26/19 24 07/27/2023 COMPR EHENS DAVY METAB OLIC PANEL BUN/creatini ne ratio SEE NOTE: (calc ) 6-22 Not Repor tyler: BUN and Creat inine are withi n refer ence range . Not Available [address], [address], 07/27/2023 05:46:06 07/26/19 24 07/27/2023 COMPR EHENS DAVY METAB OLIC PANEL sodium 142 mmol/ L 135-14 6 normal Not Available [address], [address], 07/27/2023 05:46:06 07/26/19 24 07/27/2023 COMPR EHENS DAVY METAB OLIC PANEL potassium 4.3 mmol/ L 3.5-5. 3 normal Not Available [address], [address], 07/27/2023 05:46:06 07/26/19 24 07/27/2023 COMPR EHENS DAVY METAB OLIC PANEL chloride 107 mmol/ L 98-110 normal Not Available [address], [address], 07/27/2023 05:46:06 07/26/19 24 07/27/2023 COMPR EHENS DAVY METAB OLIC PANEL carbon dioxide 27 mmol/ L 20-32 normal Not Available [address], [address], 07/27/2023 05:46:06 07/26/19 24 07/27/2023 COMPR EHENS DAVY METAB OLIC PANEL calcium 9.3 mg/dL 8.6-10 .4 normal Not Available [address], [address], 07/27/2023 05:46:06 07/26/19 24 07/27/2023 COMPR EHENS DAVY METAB OLIC PANEL protein, total 6.6 g/dL 6.1-8. 1 normal Not Available [address], [address], 07/27/2023 05:46:06 07/26/19 24 07/27/2023 COMPR EHENS DAVY METAB OLIC PANEL albumin 4.2 g/dL 3.6-5. 1 normal Not Available [address], [address], 07/27/2023 05:46:06 07/26/19 24 07/27/2023 COMPR EHENS DAVY METAB OLIC PANEL globulin 2.4 g/dL_ (calc ) 1.9-3. 7 normal Not Available [address], [address], 07/27/2023 05:46:06 07/26/19 24 07/27/2023 COMPR EHENS DAVY METAB OLIC PANEL albumin/glob ulin ratio 1.8 (calc ) 1.0-2. 5 normal Not Available [address], [address], 07/27/2023 05:46:06 07/26/19 24 07/27/2023 COMPR EHENS DAVY METAB OLIC PANEL bilirubin, total 0.5 mg/dL 0.2-1. 2 normal Not Available [address], [address], 07/27/2023 05:46:06 07/26/19 24 07/27/2023 COMPR EHENS DAVY METAB OLIC PANEL alkaline phosphatase 68 U/L 37-153 normal Not Available [address], [address], 07/27/2023 05:46:06 07/26/19 24 07/27/2023 COMPR EHENS DAVY METAB OLIC PANEL AST 17 U/L 10-35 normal Not Available [address], [address], 07/27/2023 05:46:06 07/26/19 24 07/27/2023 COMPR EHENS DAVY METAB OLIC PANEL ALT 14 U/L 6-29 normal Not Available [address], [address], 07/27/2023 05:46:06 07/26/19 24 07/27/2023 CBC (INCL UDES DIFF/ PLT) white blood cell count 4.8 thous and/u L 3.8-10 .8 normal Not Available [address], [address], 07/27/2023 05:46:07 07/26/19 24 07/27/2023 CBC (INCL UDES DIFF/ PLT) red blood cell count 4.38 kerline on/uL 3.80-5 .10 normal Not Available [address], [address], 07/27/2023 05:46:07 07/26/19 24 07/27/2023 CBC (INCL UDES DIFF/ PLT) hemoglobin 13.7 g/dL 11.7-1 5.5 normal Not Available [facility] [address], [address], 07/27/2023 05:46:07 07/26/19 24 07/27/2023 CBC (INCL UDES DIFF/ PLT) hematocrit 40.6 % 35.0-4 5.0 normal Not Available [address], [address], 07/27/2023 05:46:07 07/26/19 24 07/27/2023 CBC (INCL UDES DIFF/ PLT) MCV 92.7 fL 80.0-1 00.0 normal Not Available [address], [address], 07/27/2023 05:46:07 07/26/19 24 07/27/2023 CBC (INCL UDES DIFF/ PLT) MCH 31.3 pg 27.0-3 3.0 normal Not Available [address], [address], 07/27/2023 05:46:07 07/26/19 24 07/27/2023 CBC (INCL UDES DIFF/ PLT) MCHC 33.7 g/dL 32.0-3 6.0 normal Not Available [address], [address], 07/27/2023 05:46:07 07/26/19 24 07/27/2023 CBC (INCL UDES DIFF/ PLT) RDW 12.4 % 11.0-1 5.0 normal Not Available [address], [address], 07/27/2023 05:46:07 07/26/19 24 07/27/2023 CBC (INCL UDES DIFF/ PLT) platelet count 275 thous and/u L 140-40 0 normal Not Available [address], [address], 07/27/2023 05:46:07 07/26/19 24 07/27/2023 CBC (INCL UDES DIFF/ PLT) MPV 10.5 fL 7.5-12 .5 normal Not Available [address], [address], 07/27/2023 05:46:07 07/26/19 24 07/27/2023 CBC (INCL UDES DIFF/ PLT) absolute neutrophils 2813 cells /uL 1500-7 800 normal Not Available [address], [address], 07/27/2023 05:46:07 07/26/19 24 07/27/2023 CBC (INCL UDES DIFF/ PLT) absolute lymphocytes 1565 cells /uL 850-39 00 normal Not Available [address], [address], 07/27/2023 05:46:07 07/26/19 24 07/27/2023 CBC (INCL UDES DIFF/ PLT) absolute monocytes 302 cells /uL 200-95 0 normal Not Available [address], [address], 07/27/2023 05:46:07 07/26/19 24 07/27/2023 CBC (INCL UDES DIFF/ PLT) absolute eosinophils 91 cells /uL 15-500 normal Not Available [address], [address], 07/27/2023 05:46:07 07/26/19 24 07/27/2023 CBC (INCL UDES DIFF/ PLT) absolute basophils 29 cells /uL 0-200 normal Not Available [facility] [address], [address], 07/27/2023 05:46:07 07/26/19 24 07/27/2023 CBC (INCL UDES DIFF/ PLT) neutrophils 58.6 % normal Not Available [address], [address], 07/27/2023 05:46:07 07/26/19 24 07/27/2023 CBC (INCL UDES DIFF/ PLT) lymphocytes 32.6 % normal Not Available [address], [address], 07/27/2023 05:46:07 07/26/19 24 07/27/2023 CBC (INCL UDES DIFF/ PLT) monocytes 6.3 % normal Not Available [facility] [address], [address], 07/27/2023 05:46:07 07/26/19 24 07/27/2023 CBC (INCL UDES DIFF/ PLT) eosinophils 1.9 % normal Not Available [facility] [address], [address], 07/27/2023 05:46:07 07/26/19 24 07/27/2023 CBC (INCL UDES DIFF/ PLT) basophils 0.6 % normal Not Available [facility] [address], [address], 07/27/2023 05:46:07 07/26/19 24 07/27/2023 VITAM IN B12 vitamin B12 349 pg/mL 200-11 00 normal Pleas e Note: Altho ugh the refer ence range for vitam in B12 is 200-1 100 pg/mL , it has been repor tyler that betwe en 5 and 10% of patie nts with value s betwe en 200 and 400 pg/mL may exper ience neuro psych iatri c and hemat ologi c abnor malit ies due to occul t B12 defic iency ; less than 1% of patie nts with value s above 400 pg/mL will have sympt oms. Not Available [address], [address], 07/27/2023 05:46:09 07/26/19 24 07/27/2023 VITAM IN D,25- OH,TO EDUARDA,I A vitamin D,25-oh,tota l,ia 31 NG/mL 30-100 normal Vitam in D Statu s 25-OH Vitam in D: Defic iency : <20 ng/mL Insuf ficie ncy: 20 - 29 ng/mL Optim al: > or = 30 ng/mL For 25-OH Vitam in D testi ng on patie nts on D2-sanders pplem entat ion and patie nts for whom quant itati on of D2 and D3 fract ions is requi red, the [facility] e[facility](TM ) 25-OH VIT D, (D2,D 3), LC/MS /MS is recom maggie d: order code 51116 (lovely ents >2yrs ). See Note 1 Note 1 For addit ional infor niki hawk refer to http: //[facility] kelli block.Que stDia gnost ics.c om/fa q/FAQ 199 (This link is being provi ded for infor stas titus/ educa yevgeniy reza purpo ses only. ) Not Available [facility] [address] [place], [address], 07/27/2023 05:46:10 12/19/19 24 12/19/2023 COLOG UARD cologuard result reportable NEGATI VE negati ve normal NEGAT DAVY TEST RESUL T. A negat davy Colog uard resul t indic ates a low likel ihood that a color ectal cance r (CRC) or advan lane adeno ma (gudelia omato us polyp s with more advan lane pre-m align ant featu res) is prese nt. The chanc e that a perso n with a negat davy Colog uard test has a color ectal cance r is less than 1 in 1500 (nega tive predi ctive value >99.9 %) or has an advan lane adeno ma is less than 5.3% (nega tive predi ctive value 94.7% ). These data are based on a prosp ectiv e cross -sect ional study of 00 0 indiv idual s at [facility] risk for color ectal cance r who were scree leticia with both Colog uard and colon oscop y. (Carol Mcgovern et al, N Engl J Med 2014; 370(1 4):12 86-12 97) The renan l value (refe rence range ) for this assay is negat davy. COLOG UARD RE-SC AMRITA HONG RECOM MENDA TION: Perio dic color ectal cance r scree samanta is an impor tant part of preve ntive healt hcare for asymp tomat ic indiv idual s at [facility] risk for color ectal cance r. Follo wing a negat davy Colog uard resul t, the Ameri can Cance r Socie ty and U.S. Multi -Soci ety Task Force scree samanta guide lines recom mend a Colog uard re-sc reesindy hong inter ned of 3 years . Refer ences : Ameri can Cance r Socie ty Guide line for Color ectal Cance r Scree samanta: https ://ww w.can cer.o rg/ca ncer/ colon -rect al-ca ncer/ detec tion- diagn osis- stagi ng/ac s-rec ommen datio ns.ht ml.; Lebron LUQUE, Cecy osborne CR, George GarcíaK, Color ectal Cance r Scree samanta: Recom menda tions for Physi cians and Patie nts from the U.S. Multi -Soci ety Task Force on Color ectal Cance r Scree samatna , Am Ricky diallo 2017; 112:1 016-1 030. TEST DESCR IPTIO N: [place] site algor ithmi c ulises sis of stool DNA-b ely zaman with hemog lobin immun oassa y. Quant itati ve value s of indiv idual bioma rkers are not repor table and are not assoc iated with indiv idual bioma rker resul t refer ence range s. Colog uard is inten ded for color ectal cance r scree samanta of adult s of eithe r sex, 45 years or older , who are at [facility] for color ectal cance r (CRC) . Colog uard has been appro magdalena for use by the U.S. FDA. The perfo rmanc e of Colog uard was estab lishe d in a cross secti onal study of [facility] adult s aged 50-84 . Colog uard perfo rmanc e in patie nts ages 45 to 49 years was estim ated by tc-jerrod montgomery sis of near- age group s. Colon oscop ies perfo rmed for a posit davy resul t may find as the most clini katie signi fican t lesio n: color ectal cance r [4.0% ], advan lane adeno ma (incl uding sessi le prince tyler polyp s great er than or equal to 1cm diame ter) [20%] or non- advan lane adeno ma [31%] ; or no color ectal neopl trina [45%] . These estim ates are deriv ed from a prosp ectiv e cross -sect ional scree samanta study of 0 indiv idual s at [facility] risk for color ectal cance r who were scree leticia with both Colog uard and colon oscop y. (Carol Mcgovern et al, N Engl J Med 2014; 370(1 4):12 86-12 97.) Colog uard may produ ce a false negat davy or false posit davy resul t (no color ectal cance r or preca ncero us polyp prese nt at colon oscop y follo w up). A negat davy Colog uard test resul t does not guara ntee the absen ce of CRC or advan lane adeno ma (pre- cance r). The curre nt Colog uard scree samanta inter ned is every 3 years . (Amer ican Cance r Socie ty and U.S. Multi -Soci ety Task Force ). Colog uard perfo rmanc e data in a 0 patie nt pivot al study using colon oscop y as the refer ence metho d can be acces sed at the follo wing locat ion: www.e xactl abs.c om/re bernardo . Addit ional descr iptio n of the Colog uard test proce ss, warni ngs and preca ution s can be found at www.c julieta pj.c om. Not Available [facility] (Cologuard Orders Only) [address], [place], [address], 12/25/2023 18:06:40 08/21/19 23 08/17/2022 , [facility] ardio gram No observ ation record ed. [address] [facility] [address], [place], [address], 08/20/2022 14:29:32 08/22/19 23 08/21/2022 fred r monit or No observ ation record ed. [address] [facility] [address], [place], [address], 08/21/2022 12:47:52 08/29/19 23 08/28/2022 MAMMO , scree samanta, digit al, bilat eral No observ ation record ed. [address] Sched[address], [place], [address], 08/28/2022 17:19:08 08/30/19 24 08/30/2023 MAMMO , scree samanta, digit al, bilat eral No observ ation record ed. [place] [address] [facility] [address] [facility], [place], [address], 08/30/2023 13:59:16 12/12/19 24 XR, shoul donnell, 2 or more view [facility] [address] [place] [address] Patien t Name: SORAYA PEPPER Access ion #: [id number] Sex: F : 1945 6 Dictat ed By: Donavon Robert Attend ing Physic patrciia: MAYCO ALVES CE Orderi Physic patricia: MAYCO ALVES CE Exam Date: 2023 10:54 AM Exam Name: XR SHOULD ER LT 2V+ Admitt ing Diagno sis(es ): CLINIC AL INDICA TION: pain TECHNI QUE: 3 radiog raphic views of the left should er were obtain ed. Compar simon: None FINDIN GS/IMP RESSIO N: There is no eviden ce of acute fractu re or disloc ation. The visual ized joint space is well mainta ined. The alignm ent is anatom ical. There is no radiop aque foreig n body. Electr onical ly Signed by: Donavon Robert at 2023 11:50: 11 AM Page 1 [email or web address] [facility] (Imaging) [address] [place], [address], 12/12/2023 14:02:25 12/17/19 24 DEXA, axial skele ton [facility] [address] [place] [address] Patien t Name: SORAYA PEPPER Access ion #: [id number] Sex: F : 1945 5 Locati on: RA2 Attend ing Physic patricia: MAYCO ALVES CE Orderi Physic patricia: MAYCO ALVES CE Exam Date: 024 9:03 AM Exam Name: XR DEXA AXIAL/ HIP/PE LVIS/S PINE Admitt ing Diagno sis(es ): RADIOL OGY REPORT - FINAL EXAM: XR DEXA AXIAL/ HIP/PE LVIS/S PINE HISTOR Y: osteop orosis 78-yea r-old female with osteop orosis screen ing. COMPAR SIMON: DEXA scan dated 2020. TECHNI QUE: Dual energy x-ray of absorp tion examin ation of the bilate ral hips and lumbar spine was perfor med in AP projec tion. FINDIN GS: Lumbar Spine (L1-L4 ): The mean bone minera l densit y is 0.987 g/cm2 hydrox yapati te, correl ating with a T-scor e of -1.7. BMD of the lumbar spine is decrea sed 3.8% since the prior study. Bilate ral hips: The mean bone minera l densit y is 0.775 g/cm2 calciu m Page 1 of 2 [facility] Hayley flores Name: SORAYA PEPPER Access ion #: [id number] Sex: F : 1945 5 Exam Date: 9:03 AM Exam Name: XR DEXA AXIAL/ HIP/PE LVIS/S PINE Admitt ing Diagno sis(es ): hydrox yapati te, correl ating with a T-scor e of -1.8. BMD of the hips is decrea sed 3.6% since the prior study. IMPRES ROCHELLE: 1. The patien t's lumbar spine T-scor e is consis tent with osteop enia overal l. It should be noted that the BMD at L1 is consis tent with osteop orosis . 2. The patien t's bilate ral hip T-scor e is consis tent with osteop enia overal l. It should be noted that the BMD of the right femora l neck is consis tent with osteop orosis . Accord ing to the World Health Organi zation , T-scor e values greate r than -1.0 are normal , values betwee n -1.0 and -2.5 are catego rized as osteop enia, T-scor e of -2.5 or more are catego rized as osteop orosis . Create d and electr onical ly signed by: Efraín mcdowell MD Signed Date: 9:26 AM (CT) Dictat ed by: Efraín mcdowell MD DD: 9:26 AM (CT) DT: 9:26 AM (CT) Page [address] (Imaging) [address] [place], [address], 12/17/2023 12:53:13 Result Notes None recorded. Problems Name Problem SNOMED Code Status Onset Date Resolution Date Notes Provider Name and Address Organization Details Recorded Time Renewal of prescripti on Active 2021 Not Available [facility] 3 14:45:25 Mammograph ic mass of right breast 3342309633869 9103 Active 2021 Not Available [facility] 3 14:45:25 Pain of right ankle joint 0995776996033 9106 Active 2021 Not Available [facility] 3 14:45:25 Degenerati ve joint disease involving multiple joints 679415337 Active Not Available [facility] 3 14:45:25 Localized, primary osteoarthr itis of the ankle and/or foot 722103311 Active 2021 Not Available [facility] 3 14:45:25 Lumbar sprain 868127435 Active Not Available [facility] 3 14:45:25 Screening mammograph y Active 2021 Not Available [facility] 3 14:45:25 Ankle pain 940029835 Active 2021 Not Available [facility] 3 14:45:25 Ankle pain 509304198 Active 2021 Not Available [facility] 3 14:45:26 Ankle pain 098668972 Active 2021 Not Available [facility] 3 14:45:26 Osteopenia 075986220 Active Not Available [facility] 3 14:45:26 Postartifi cial menopausal syndrome 71447923 Active Not Available [facility] 3 14:45:26 Pain in right foot 3216174188333 07 Active 2021 Not Available [facility] 3 14:45:26 Osteoarthr itis 659578729 Active Not Available [facility] 3 14:45:26 Ingrowing toenail 873039066 Active 2021 Not Available [facility] 3 14:45:26 Foot pain 02811373 Active 2021 Not Available [facility] 3 14:45:26 COVID-19 191865512 Active 2021 Not Available [facility] 3 14:45:27 Palpitatio ns 99046616 Active 2022 Avtar Alves MD [address], [address], [place], [address] , [facility] 3 15:44:24 Mammograph y abnormal 836173447 Active 2022 Ileana Peterson CMA null, [place] [facility] 3 17:45:09 Fatigue 06306844 Active 2023 Avtar Alves MD [address], [address], [place], [address] , [facility] 4 11:35:57 Subacromia l bursitis of left shoulder 1121045479001 106 Active 2023 Avtar Alves MD [address], [address], [place], [address] , [facility] 4 11:08:25 Senile osteoporos is 65352123 Active 2023 Rosa cook, [place] [facility] 4 11:13:30 Pain of left shoulder joint 6677843117944 9109 Active 2023 Rosa Le null, [place] [facility] 4 11:14:28 Shoulder joint pain 388401775 Active 2023 Rosa Le null, [place] [facility] 4 11:15:57 Shoulder joint pain 815797655 Active 2023 Rosa cook, [place] [facility] 4 11:22:52 Osteoporos is 91685085 Active 2023 Ileana Peterson CMA null, [place] [facility] 4 15:15:16 Problem Notes None recorded. Procedures Surgical History Date Name Laterality Status Provider Name and Address Organization Details Recorded Time 3 Medicare Wellness CPT Code, subsequent completed Cari Jones RN [facility] 08/10/2022 15:35:28 Imaging Results Imaging Date Name Status LastModified by Organization Details LastModified Time 08/17/2022 US, echocardiogram completed [facility] [address], [place], [address], 08/20/2022 14:29:32 08/21/2022 holter monitor completed [address] [facility] [address], [place], [address], 08/21/2022 12:47:52 08/28/2022 MAMMO, screening, digital, bilateral completed [address] [place], [address], 08/28/2022 17:19:08 08/30/2023 MAMMO, screening, digital, bilateral completed [address] [address] , [place], [address], 08/30/2023 13:59:16 12/12/2023 XR, shoulder, 2 or more view completed [address] (Imaging) [address] [place], [address], 12/12/2023 14:02:25 12/17/2023 DEXA, axial skeleton completed [address] (Imaging) [address] [place], [address], 12/17/2023 12:53:13 Procedure Notes None recorded. Medical Equipment None Reported. Allergies Allergen ID Allergen Name Allergen Category Reaction Reaction Severity Criticality Documentation Date Start Date Code Code System Note Provider Name and Address Organization Details Recorded Time 51741 acetamino phen / hydrocodo ne medicatio n nausea Not available Not available 07/25/2022 92260 2 RxNorm Not Available [facility] 14:48:15 87782 codeine medicatio n nausea Not available Not available 07/25/2022 2670 RxNorm Not Available [facility] 3 14:48:15 Medications Name Sig Start Date Stop Date Status Note LastModified by Organization Details LastModified Time amoxicillin 500 mg capsule TK FOUR CS PO 1 HOUR B DAPP active Not Available Not Available No t Available ofloxacin 0.3 % eye drops 06/11 completed Not Available Not Available Not Available benzonatate 200 mg capsule Take 1 capsule 3 times a day by oral route. 11/29 completed Not Available Not Available Not Available valacyclovi r 1 gram tablet Take 1 tablet 3 times a day by oral route. active Not Available Not Available No t Available alendronate 70 mg tablet TAKE 1 TABLET BY MOUTH EVERY WEEK 2024 active Not Available Not Available Not Avai lable Zithromax Z-Lawrence 250 mg tablet TAKE 2 TABLETS (500 MG) BY ORAL ROUTE ONCE DAILY FOR 1 DAY THEN 1 TABLET (250 MG) BY ORAL ROUTE ONCE DAILY FOR 4 DAYS 11/29 completed Not Available Not Available Not Available cyanocobala min (vit B-12) 1,000 mcg tablet Take 1 tablet every day by oral route. 2018 active Not Available Not Available Not Avai lable doxycycline monohydrate 100 mg tablet TAKE 1 TABLET BY MOUTH ONCE DAILY DIRECTED 11/22 completed Not Available Not Available Not Available ketorolac 0.5 % eye drops 06/11 completed Not Available Not Available Not Available prednisolon e acetate 1 % eye drops,suspe nsion INSTILL 1 DROP INTO AFFECTED EYE(S) BY OPHTHALMI C ROUTE 2 TIMES PER DAY 12/12 completed Not Available Not Available Not Available cyanocobala min (vit B-12) 1,000 mcg/mL injection solution Inject 1 mL every month by intramusc ular route. 06/13 completed Not Available Not Available Not Available Cipro 500 mg tablet Take 1 tablet twice a day by oral route for 5 days. 12/12 completed Not Available Not Available Not Available gabapentin 300 mg capsule Take 1 capsule 3 times a day by oral route as needed. active Not Available Not Available No t Available methylpredn isolone 4 mg tablets in a dose pack FOLLOW PACKAGE DIRECTION S 11/21 completed Not Available Not Available Not Available Vitamin D2 1,250 mcg (50,000 unit) capsule Take 1 capsule every week by oral route. 12/12 completed Not Available Not Available Not Available Bactrim DS 800 mg-160 mg tablet Take 1 tablet every 12 hours by oral route for 5 days. 05/31 completed Not Available Not Available Not Available Vitamin D3 25 mcg (1,000 unit) tablet Take 1 tablet every day by oral route. 2018 active Not Available Not Available Not Avai lable Aleve take two times a day 2013 active Not Available Not Available Not Avai lable Os-Jose 500 + D3 once daily 11/21 completed Not Available Not Available Not Available Glucosamine Chondroit Complx Advan 750 mg-100 mg-125 mg-1.65 mg tablet Take 1 tablet every day by oral route. 2021 active Not Available Not Available Not Avai lable ICaps AREDS 4,296 mcg-226 mg-90 mg capsule Take 1 capsule every day by oral route. 2018 active Not Available Not Available Not Avai lable Os-Jose 500 + D3 500 mg-15 mcg (600 unit) tablet Take 1 tablet every day by oral route. 2021 active Not Available Not Available Not Avai lable glucosamine 125 mg-chondroi tn 100 mg-cartilg 40 mg-colagn 10 mg tablet Take 1 tablet every day by oral route. 11/21 completed Not Available Not Available Not Available Paxlovid 300 mg (150 mg x 2)-100 mg tablets in a dose pack TK 2 NIRMATREL VIR TS AND 1 RITONAVIR T TOGETHER PO BID FOR 5 DAYS TWICE DAILY FOR 5 DAYS 08/10 completed Not Available Not Available Not Available Paxlovid 150 mg-100 mg tablets in a dose pack (Renal Dose) Take by oral route. Take two 150 mg and one 100 mg tablet twice daily for five days 08/10 completed Not Available Not Available Not Available Vitals Date Recorded Body mass index (BMI) Body height Oxygen saturation Oxygen saturation in Arterial blood by Pulse oximetry Heart rate Body temperature Body weight Systolic blood pressure Diastolic blood pressure Provider Name and Address Organization Details Last Updated DateTime 2 24.3 kg/m2 165.1 cm 99 % 99 % 68 /min 96 [degF] 34421.4 9 g 122 mm[Hg] 68 mm[Hg] Not Available [facility] 3 14:44:49 Date Recorded Body height Body mass index (BMI) Body weight Heart rate Body temperature Oxygen saturation Oxygen saturation in Arterial blood by Pulse oximetry Systolic blood pressure Diastolic blood pressure Provider Name and Address Organization Details Last Updated DateTime 3 165.1 cm 24.1 kg/m2 53834.8 9 g 78 /min 97.2 [degF] 98 % 98 % 120 mm[Hg] 60 mm[Hg] [facility] [employer] [facility] 3 15:30:26 Date Recorded Pain severity - 0-10 verbal numeric rating [Score] - Reported Provider Name and Address Organization Details Last Updated DateTime 08/10/2022 0 Cari Jones RN [facility] [employer] [facility] 08/10/2022 15:35:41 Date Recorded Body height Body mass index (BMI) Body weight Heart rate Body temperature Oxygen saturation Oxygen saturation in Arterial blood by Pulse oximetry Systolic blood pressure Diastolic blood pressure Provider Name and Address Organization Details Last Updated DateTime 3 165.1 cm 23.6 kg/m2 75744.1 2 g 63 /min 97 [degF] 97 % 97 % 120 mm[Hg] 62 mm[Hg] [facility] [employer] [facility] 3 10:49:17 Date Recorded Body height Body mass index (BMI) Body weight Heart rate Body temperature Oxygen saturation Oxygen saturation in Arterial blood by Pulse oximetry Systolic blood pressure Diastolic blood pressure Provider Name and Address Organization Details Last Updated DateTime 4 165.1 cm 23.1 kg/m2 88256.3 4 g 69 /min 97 [degF] 95 % 95 % 118 mm[Hg] 64 mm[Hg] [facility] [employer] [facility] 4 11:18:03 Date Recorded Body height Body mass index (BMI) Body weight Heart rate Body temperature Oxygen saturation Oxygen saturation in Arterial blood by Pulse oximetry Systolic blood pressure Diastolic blood pressure Provider Name and Address Organization Details Last Updated DateTime 4 165.1 cm 23.6 kg/m2 05082.1 2 g 90 /min 97.8 [degF] 98 % 98 % 118 mm[Hg] 68 mm[Hg] RODRIGUE Elizondo [facility] [employer] [facility] 4 10:45:58 Social History Question Answer Notes LastModified by Organizat ion Details LastModified Time Tobacco Smoking Status Never Smoker Not Available [facility] 07/25/2022 14:43:53 Do You Have An Advance Directive? Yes [id number] Information not available 07/25/2022 What Is Your Level Of Alcohol Consumption? Occasional MIGRATION.01035 [id number] Information not available 07/25/2022 Are You Blind Or Do You Have Difficulty Seeing? No MIGRATION.45455 06687 Information not available 07/25/2022 In The 14 Days Before Symptom Onset, Have You Had Close Contact With A Laboratory-confi rmed COVID-19 While That Case Was Ill? No MIGRATION.44875 [id number] Information not available 07/25/2022 In The 14 Days Before Symptom Onset, Have You Had Close Contact With A Person Who Is Under Investigation For COVID-19 While That Person Was Ill? No MIGRATION.[id number] [id number] Information not available 07/25/2022 Are You Deaf Or Do You Have Serious Difficulty Hearing? No MIGRATION.92923 71356 Information not available 07/25/2022 What Type Of Diet Are You Following? REGULAR MIGRATION.68147 74968 Information not available 07/25/2022 Do You Or Have You Ever Used E-cigarettes Or Vape? Never Used Electronic Cigarettes MIGRATION.69569 39650 Information not available 07/25/2022 Have There Been Any Changes To Your Family Or Social Situation? No [email or web address] Information not available 08/10/2022 What Is The Fluoride Status Of Your Home? Unknown [email or web address] Information not available 08/10/2022 Are There Any Guns Present In Your Home? Yes MIGRATION.78614 35315 Information not available 07/25/2022 Do You Use Insect Repellent Routinely? No Information not available 08/10/2022 Where Do You Live? SingleLevelHouse [email or web address] Information not available 08/10/2022 Guns Present In The Home? Yes [email or web address] Information not available 08/10/2022 Are You Able To Care For Yourself? Yes [email or web address] Information not available 08/10/2022 Are You Blind Or Do Yo Have Difficulty Seeing? No [email or web address] Information not available 08/10/2022 Are You Deaf Or Do You Have Serious Difficulty Hearing? No [email or web address] Information not available 08/10/2022 Live Alone Of With Others? With Others Information not available 08/10/2022 Do You Have A Medical Power Of Lead Caster? Yes [email or web address] Information not available 08/10/2022 What Was The Date Of Your Most Recent Tobacco Screening? 08/10/2022 [email or web address] Information not available 08/10/2022 Do You Have Any Pets? No [email or web address] Information not available 08/10/2022 What Is Your Relationship Status? [email or web address] Information not available 08/10/2022 Do You Use Your Seat Belt Or Car Seat Routinely? Yes [email or web address] Information not available 08/10/2022 Do You Have Smoke And Carbon Monoxide Detectors In Your Home? Yes [email or web address] Information not available 08/10/2022 Are You Passively Exposed To Smoke? No [email or web address] Information not available 08/10/2022 Do You Or Have You Ever Used Smokeless Tobacco? Never Used Smokeless Tobacco MIGRATION.[id number] [id number] Information not available 07/25/2022 Are There Any Smokers In Your House? No [email or web address] Information not available 08/10/2022 Do You Use Sunscreen Routinely? No MIGRATION.81267 30641 Information not available 07/25/2022 Have You Recently Traveled Abroad? No MIGRATION.15310 34314 Information not available 07/25/2022 Sex: Unknown Functional Status Question Answer Note LastModified by Organizat ion Details LastModified Time Do you have difficulty walking or climbing stairs? No MIGRATION.[id number] 026 Information not available 07/25/2022 Do you have transportation difficulties? No MIGRATION.[id number] 026 Information not available 07/25/2022 Are you able to walk? YESWOREST MIGRATION.7604290 026 Information not available 07/25/2022 Do you have difficulty doing errands alone? No MIGRATION.[id number] 026 Information not available 07/25/2022 Are you able to care for yourself? Yes MIGRATION.[id number] 026 Information not available 07/25/2022 Do you have difficulty dressing or bathing? No MIGRATION.9556791 026 Information not available 07/25/2022 What is your exercise level? None [email or web address] Information not available 08/10/2022 Mental Status Question Answer Note LastModified by Organizat ion Details LastModified Time Do you have difficulty concentrating, remembering or making decisions? No MIGRATION.[id number] 6 Information not available 07/25/2022 Family History Nothing Reported Notes:Mother 89 yea rs old infirmities and CHF Father 95 years old ASHD and Hx of CABG 2 Brothers 2 Living one has hepatoma 1 Sisters 1 Living good health Medical History Condition Response BLINDNESS N NERVE DISEASE N RHEUMATIC FEVER N BLADDER PROBLEMS N KIDNEY STONES N MRSA N OTHER # 1 N POLIO N LUNG DISEASE/DISORDER N RADIATION / CHEMOTHERAPY N COPD N Other # 2 N BLOOD DISEASES N SURGERY N EAR OR HEARING PROBLEMS N MUMPS N DEPRESSION (INCLUDING POST ) N BOWEL PROBLEMS N STROKE/TIA N ULCERS N BENIGN PROSTATIC HYPERPLASIA N MEASLES N MYOCARDIAL INFARCTION N OBESITY N GERD/NAUSEA N ANEURYSM N URINARY/BLADDER/KIDNEY PROBLEMS N CORONARY ARTERY DISEASE (CAD) N ADDICTION CONCERNS N ENDOMETRIOSIS N Impotence N USE OF BLOOD THINNERS N SKIN PROBLEMS N GASTROINTESTINAL DISORDER N PERIPHERAL VASCULAR DISEASE N MUSCLE,JOINT OR BONE PROBLEMS Y GASTROINTESTINAL BLEEDING N BLOOD CLOTS N ASTHMA N CATARACTS N ERECTILE DYSFUNCTION N VARICOSITIES N GI PROBLEMS N Low Testosterone N INFERTILITY N AIDS/HIV N CHEMOTHERAPY / RADIATION N LIVER DISEASE N MALE HYPOGONADISM N HYPERTENSION N Deficiency N ANXIETY DISORDER N BLOOD TRANSFUSION N ANEMIA/BLOOD DISORDER N CHRONIC EAR INFECTIONS N BRONCHITIS N TUBERCULOSIS N GLAUCOMA N FOOT PROBLEM N DIVERTICULITIS N SLEEP APNEA N CHICKENPOX N INFECTIOUS DISEASE N HEART ARRHYTHMIA N PROSTATE N INSOMNIA N HIGH CHOLESTEROL / HYPERLIPIDEMIA N HYPERTHYROIDISM N EYE PROBLEMS N NEUROLOGICAL PROBLEMS N EDEMA N CHRONIC PAIN SYNDROME N HYPOTHYROIDISM N CAROTID BLOCKAGE N CONSTIPATION N BACK / NECK PROBLEMS Y HAVE YOU BEEN HOSPITALIZED OR SEEN IN [facility] IN THE PAST YEAR ? N ATHEROSCLEROSIS N BREAST PROBLEMS N DIALYSIS N ECZEMA N OSTEOPOROSIS Y ARTHRITIS N NO SIGNIFICANT PAST MEDICAL HISTORY N APPENDICITIS N DIABETES, TYPE N BAD TEETH N ENT N HEARTBURN / REFLUX N AFIB N AUTISM SPECTRUM DISORDER (ASD) N HEPATITIS / LIVER DISEASE N GOUT N SLEEP DISORDER N ALZHEIMER'S DISEASE N Brain Problems N HERPES N DEMENTIA N HEADACHES/MIGRAINES N SEIZURES/EPILEPSY N VASCULAR DISEASE N PACEMAKER N Blood Disorder N DIZZINESS N HEART DISEASE/HEART PROBLEMS N KIDNEY DISEASE N MULTIPLE SCLEROSIS N CARDIAC ARRHYTHMIA N CANCER: SPECIFY N ATRIAL FIBRILLATION N Gall Stones N PULMONARY EMBOLISM N AUTOIMMUNE DISEASE N Gynecological History Statement/Question Response Date of Last Mammogram 06/14/2020 Date of Last Colonoscopy Most Recent Bone Density Obstetrics History GPAL:G 0 P 0 0 0 0 Immunizations Vaccine Type Date Status Note Provider Nam e and Address Organization Details Recorded Time Influenza, split virus, trivalent, preservative 8 completed Not Available [facility] 07/25/2022 14:48:11 Influenza, split virus, quadrivalent, preservative 1 completed Not Available [facility] 07/25/2022 14:48:11 COVID-19, mRNA, LNP-S, PF, 30 mcg/0.3 mL dose 1 completed Not Available [facility] 07/25/2022 14:48:12 SARS-COV-2 (COVID-19) vaccine, UNSPECIFIED 1 completed Not Available [facility] 07/25/2022 14:48:12 SARS-COV-2 (COVID-19) vaccine, UNSPECIFIED 1 completed Not Available [facility] 07/25/2022 14:48:12 influenza, unspecified formulation 7 completed Not Available [facility] 07/25/2022 14:48:12 pneumococcal polysaccharide PPV23 2 completed Not Available [facility] 07/25/2022 14:48:12 Tdap 9 completed Not Available [facility] 07/25/2022 14:48:12 Pneumococcal conjugate PCV 13 4 completed Not Available [facility] 07/25/2022 14:48:13 Influenza, split virus, quadrivalent, preservative 5 completed Not Available [facility] 07/25/2022 14:48:13 Past Encounters Encounter ID Performer Location Encounter Start Date Encounter Closed Date Diagnosis/Indication Diagnosis SNOMED-CT Code Diagnosis ICD10 Code Diagnosis Note [id number] [facility] [place] Evette llamada [address] [place] [address] 09/06/2020 00:00:00 09/06/2020 10:24:40 [id number] [facility] [place] Paolovi llamada [id number] [place] [address] 11/22/2020 00:00:00 11/22/2020 11:14:20 [id number] [facility] [place] [address] [facility] [address] , [place] [address] 05/23/2021 00:00:00 05/23/2021 11:02:37 [id number] [facility] [place] [address] [facility] [address] , [place] [address] 06/27/2021 00:00:00 06/27/2021 12:15:37 [id number] [facility] [place] [address] [place] [address] 07/17/2021 00:00:00 07/18/2021 16:20:15 [id number] [facility] [place] [address] [facility] [address] , [place] [address] 11/21/2021 00:00:00 11/21/2021 10:42:19 [id number] [facility] [place] [address] [place] [address] 03/12/2022 00:00:00 03/13/2022 11:26:55 [id number] [facility] [place] [address] [place] [address] 04/12/2022 00:00:00 04/12/2022 10:26:46 [id number] [facility] [place] [address] [facility] [address] , [place] [address] 05/22/2022 00:00:00 05/22/2022 11:05:36 [id number] Avtar Alves MD [facility] [place] [address] [place] [address] [place] [address] 08/10/2022 15:01:58 08/10/2022 16:12:47 Adult health examination 597850061 Z00.00 Screening for disorder 150868292 Z13.9 Palpitations 95061643 R0 0.2 [id number] [facility] [place] [address] [facility] [place] [address] 12/11/2022 10:42:40 12/11/2022 11:10:34 Degenerative joint disease involving multiple joints 847254818 M15.9 [id number] Av[facility] Al[facility] [place] [address] [facility] [place] [address] 06/11/2023 10:50:51 06/11/2023 11:39:46 Osteopenia 575672700 M85.80 Screening for cardiovascular system disease 654485872 Z13.6 Fatigue 85311597 R53.83 R53.0 R53.1 R53.81 [id number] Avtar Alves [facility] [place] [address] [facility] [place] [address] 12/12/2023 10:37:50 12/12/2023 11:12:41 Osteopenia 913101792 M85.80 Subacromia l bursitis of left shoulder [id number] [id number] M75.52 Health Concerns Section Related Observation LastModified by Organization Detai ls LastModified Time None Recorded Concern Status LastModified by Organization Details LastModified Time None Recorded Advance Directives Directive Y: Payers Encounter Date Sequence Insurance Name Policy Number Policy Daly Covered Member ID Daly Member ID Guarantor Name 08/10/2022 1 [place] Soraya Reza Evgeny [id number] Soraya Pepper 08/10/2022 2 [employer] (MEDICARE SUPPLEMENT) [id number] Soraya Reza Evgeny [id number] Soraya Pepper 12/11/2022 1 [place] Soraya Reza Evgeny [id number] 25 Soraya Pepper 12/11/2022 2 [employer] (MEDICARE SUPPLEMENT) [id number] Soraya L Evgeny [id number] Soraya Pepper 06/11/2023 1 [place] Soraya Pepper [id number] 25 Soraya Pepper 06/11/2023 2 [employer] (MEDICARE SUPPLEMENT) [id number] Soraya Pepper [id number] Soraya Pepper 12/12/2023 1 [place] Soraya Pepper [id number] Soraya Pepper 12/12/2023 2 [employer] (MEDICARE SUPPLEMENT) [id number] Soraya Pepper [id number] Soraya Pepper Notes Date Note Type Note Provider Name and Address Organization Details Recorded Time 08/10/2022 text/html Patient Name: Edu PepperDate Of Service: Saturday ( 08.10.2022 ): 1945 Age: 76 Vital Signs:Blood Pressure: Sitting Rt. Arm 120/60Pulse: Sitting 78 /min and RegularRespirations: 12Height 65 in or 1.7 mWeight 145 lb or 65.8 kgBMI 24.1Temperature: 97.2 F or 36.2 CPulse Oximetry: 98 % at rest on no oxygen Chief Complaint: Addressed in HPI Problems or conditions discussed in the HPI were the only ones reviewed during the encounter.Only social and family history addressed in the HPI were reviewed during this encounter. A significant, separate E/M service was performed to evaluate the current and new problems. Attendant(s): None Constitutional and Systemic Symptoms: none Medication Reconciliation: from medication list. History of Present Illness Reviewed the findings of the preventative health visit. Addressed all areas with the patient, patient's family or caregivers. Preventative examinations and testing immunizations - vaccinations, colonic neoplasm screening and mammograms all reviewed and ordered where patient was amenable to the recommendations. Cognitive function was normal. Depression addressed and where necessary medications were adjusted or instituted. End of life and living will briefly discussed with patient and where these can be filled out and legally executed. Other blood and imaging studies were ordered if considered necessary. Other recommendations may be found in the encounter note. #1. Recent episode of a bout of palpitations lasted for 30-40 minutes. This occurred while sitting lying down. Not associated with any shortness of breath or other cardiopulmonary symptomatology. Denied any associated chest pain or chest pressure. Just felt like the heart was pounding trying to jump out of her chest. Does not drink him much in the way of any caffeinated beverages. Is not taking any decongestants. Overall has been feeling well otherwise. Has some very mild exertional dyspnea when climbing steps but nothing that is changed over the last six months to year. Was unable to determine whether the rhythm was irregular not. Had blood work performed recently which showed normal thyroid function.: TEST RESULT RANGE UNITSCBC (INCLUDES DIFF/PLT) Date: 06/09/2022WHITE BLOOD CELL COUNT 4.9 3.8-10.8 THOUSAND/ULHEMOGLOBIN 13.4 11.7-15.5 G/DLHEMATOCRIT 41.0 35.0-45.0 %PLATELET COUNT 286 140-400 THOUSAND/ULCOMPREHENSIV E METABOLIC PANEL Date: 06/09/2022SODIUM 143 135-146 MMOL/LPOTASSIUM 4.7 3.5-5.3 MMOL/LGLUCOSE 94 65-99 MG/DLUREA NITROGEN (BUN) 15 7-25 MG/DLCREATININE 0.73 0.60-1.00 MG/DLEGFR 86 > OR = 60 ML/MIN/1.19A4PBL 18 6-29 U/LAST 21 10-35 U/LALKALINE PHOSPHATASE 64 37-153 U/LBILIRUBIN, TOTAL 0.6 0.2-1.2 MG/DLLIPID PANEL, STANDARD Date: 3CHOLESTEROL, TOTAL 235 <200 MG/DLHDL CHOLESTEROL 64 > OR = 50 MG/DLTRIGLYCERIDES 158 <150 MG/DLLDL-CHOLESTEROL 142 MG/DL (CALC)T4, FREE Date: 06/09/2022T4, FREE 1.0 0.8-1.8 NG/DLTSH Date: 06/09/2022TSH 3.44 0.40-4.50 MIU/LVITAMIN D,25-OH,TOTAL,IA Date: 06/09/2022VITAMIN D,25-OH,TOTAL,IA 30 30-100 NG/MLMedication List Reviewed and Reconciled 08/10/2022Vitamin B12 1000 MCG DailyVitamin D DailyGlucosamine Chondrotin Sulfate DailyOs-jose D One BidADRs List Reviewed 08/10/2022odeine Nausea And VomitngVaccination and Ehkblfbolrki3120-88 Mwggjsicn3508-38 Covid Uhhtgo5703-61 Covid Booster Cqsors4961-30 Prevnar 815340-24 Wtiebbpso3121-17 Tetanus BoosterSurgical HistoryRight Knee Arthroscopy, Left Total Knee, Cataract Right, Rt. Retina Surgery, Left Media Meniscus, Bladder Suspension, Rt. Breast BiopsyPreventative Testing Confirmed by Our Vxddlbp5406/09/2022 ALBUMIN 4.2 G/DL03/28/2022 LETTER EUNYYUCOBBYMQ35/09/2022 MAMMOGRAM / DEXA SCAN12/22/2013 COLONOSCOPY (10 YEARS) 12/23/2023Social HistoryDoes not smoke cigarettes. Drinking Hx: 1 Cup of coffee per day.Exercise: WeeklySexual Hx: Sexually ActiveOccupation: TeacherFamily HistoryMother 89 years old infirmities and CHFFather 95 years old ASHD and Hx of CABG2 Brothers 2 Living one has hepatoma1 Sisters 1 Living good health Avtar Alves MD [address] [facility], [facility] [address] [place], [address], [facility] [email or web address] 08/10/2022 15:49:07 12/11/2022 text/html Patient Name: Edu mendoza FremontDate Of Service: Saturday ( 12.11.2022 ): 1945 Age: 77 There has been approximately a 3 lb weight loss since 08/10/2022. This represents approximately a 2.1% change in weight. Weight change attributable to lifestyle changes. Vital Signs:Blood Pressure: Sitting Rt. Arm 120/62Pulse: Sitting 63 /min and RegularRespirations: 12Height 65 in or 1.7 mWeight 142 lb or 64.4 kgBMI 23.6Temperature: 97 F or 36.1 CPulse Oximetry: 97 % at rest on no oxygen Chief Complaint: Addressed in HPI Problems or conditions discussed in the HPI were the only ones reviewed during the encounter.Only social and family history addressed in the HPI were reviewed during this encounter. Attendant(s): None Constitutional and Systemic Symptoms: none Medication Reconciliation: from medication list. Gwsxwjdrgon80/27/2023: Echocardiogram from 08/17/2022 shows an estimated ejection fraction of 60%. Qaxd-li-jnvmxieu mitral regurgitation. Mild thickening of the aortic valve leaflets. There is trace physiological aortic valve regurgitation. Normal gradients across the aortic valve were noted. There is mild tricuspid regurgitation with a estimated peak pulmonary artery pressure of 19 mmHg.08/21/2022: Holter monitor from 08/20/2022 demonstrated sinus rhythm with rare ventricular premature contractions and supraventricular contractions. The average heart rate was 70 beats per minute with a maximum 122 and a minimum of 50. History of Present Illness #1. Two degenerative arthritis clinically stable. No interval complaints any new problems with regards to joint pain or discomfort. Will continue on current Rx.:Medication List Reviewed and Reconciled 12/11/2022Vitamin B12 1000 MCG DailyVitamin D DailyGlucosamine Chondrotin Sulfate DailyOs-jose D One BidADRs List Reviewed 12/11/2022odeine Nausea And VomitngVaccination and Ergcckysanhz1822-87 Pcppllxrn0069-57 Covid Tmpnwc9818-09 Covid Booster Siljfd4924-33 Prevnar 278106-35 Bdgkqpili0862-79 Tetanus BoosterSurgical HistoryRight Knee Arthroscopy, Left Total Knee, Cataract Right, Rt. Retina Surgery, Left Media Meniscus, Bladder Suspension, Rt. Breast BiopsyPreventative Testing Confirmed by Our Evskyum4308/27/2022 MAMMOGRAM ALBUMIN 4.2 G/DL03/28/2022 LETTER CDQURMCZWSJSJ95/16/2021 DEXA SCAN12/22/2013 COLONOSCOPY (10 YEARS) 12/23/2023Social HistoryDoes not smoke cigarettes. Drinking Hx: 1 Cup of coffee per day.Exercise: WeeklySexual Hx: Sexually ActiveOccupation: TeacherFamily HistoryMother 89 years old infirmities and CHFFather 95 years old ASHD and Hx of CABG2 Brothers 2 Living one has hepatoma1 Sisters 1 Living good health Avtar Alves MD [address] [facility], [facility] [address], [place], [address], [place] [facility] 12/11/2022 11:06:53 06/11/2023 text/html Patient Name: Edu mendoza FremontDate Of Service: Saturday ( 06.11.2023 ): 1945 Age: 77 There has been approximately a 3 lb weight loss since 12/11/2022. This represents approximately a 2.1% change in weight. Weight change attributable to lifestyle changes. Vital Signs:Blood Pressure: Sitting Rt. Arm 118/64Pulse: Sitting 69 /min and RegularRespiratory Rate: 12Height 65 in or 1.7 mWeight 139 lb or 63.0 kgBMI 23.1Temperature: 97 F or 36.1 CPulse Oximetry: 95 % at rest on no oxygen Chief Complaint: Addressed in HPI Problems or conditions discussed in the HPI were the only ones reviewed during the encounter.Only social and family history addressed in the HPI were reviewed during this encounter. Attendant(s): NoneConstitutional and Systemic Symptoms:none Medication Reconciliation: from medication list. AnnotationsEchocardiogr am from 08/17/2022 shows an estimated ejection fraction of 60%. Xdje-ny-appiocrf mitral regurgitation. Mild thickening of the aortic valve leaflets. There is trace physiological aortic valve regurgitation. Normal gradients across the aortic valve were noted. There is mild tricuspid regurgitation with a estimated peak pulmonary artery pressure of 19 mmHg. Holter monitor from 08/20/2022 demonstrated sinus rhythm with rare ventricular premature contractions and supraventricular contractions. The average heart rate was 70 beats per minute with a maximum 122 and a minimum of 50. History of Present Illness #1. osteopenia. No new complaints of any additional back,hip or other musculoskeletal complaints related to the osteoporosis. No hx of any recent trauma. Currently taking OsCal-D. Has showed osteopenia. The FRAX Score for Hip Fracture is < 3% FRAX score for major fractures < 20% Active Medication List 06/11/2023Vitamin B12 1000 MCG DailyVitamin D DailyGlucosamine Chondrotin Sulfate DailyOs-jose D One Bid Adverse Drug Reactions Reviewed 06/11/2023odeine Nausea And Vomitng Vaccination and Agbpemmejbdi7491-15 Fabaioigx1333-15 Covid Hhttdj8096-31 Covid Booster Jprpwb6274-63 Prevnar 13 Nl6150-58 Pneumovax Surgical Eagrdfq1398-10 Right Knee Bkabbztfaym9594-27 Left Total Fihy1546-19 Cataract Gtxea6488-10 Rt. Retina Kengpfz5987-85 Left Media Xzuaylrk4647-64 Bladder Aozhgrjjgr3115-27 Rt. Breast Biopsy Preventative Testing Confirmed by Our Ppdjazd4608/27/2022 MAMMOGRAM ALBUMIN 4.2 G/DL N105/28/2021 CLAMFIPYOYGAI77/16/2021 DEXA SCAN12/22/2013 COLONOSCOPY (10 YEARS) 12/23/2023 Social HistoryDoes not smoke cigarettes. Drinking Hx: 1 Cup of coffee per day.Exercise: WeeklySexual Hx: Sexually ActiveOccupation: Teacher Family HistoryMother 89 years old infirmities and CHFFather 95 years old ASHD and Hx of CABG2 Brothers 2 Living one has hepatoma1 Sisters 1 Living good health Avtar Alves MD [address] [facility], [facility] [address], [place], [address], [facility] 06/11/2023 11:36:42 12/12/2023 text/html Patient Name: Edu mendoza FremontDate Of Service: November ( 12.12.2023 ): 1945 Age: 78 There has been approximately a 3 lb weight gain since 06/11/2023. This represents approximately a 2.2% change in weight. Weight change attributable to lifestyle changes. Vital Signs:Blood Pressure: Sitting Rt. Arm 118/68Pulse: Sitting 90 /min and RegularRespiratory Rate: 12Height 65 in or 1.7 mWeight 142 lb or 64.4 kgBMI 23.6Temperature: 97.8 F or 36.6 CPulse Oximetry: 98 % at rest on no oxygen Chief Complaint: Addressed in HPI Problems or conditions discussed in the HPI were the only ones reviewed during the encounter.Only social and family history addressed in the HPI were reviewed during this encounter. Attendant(s): NoneConstitutional and Systemic Symptoms:none Medication Reconciliation: from medication list. AnnotationsEchocardiogr am from 08/17/2022 shows an estimated ejection fraction of 60%. Pwsb-pj-qzcsjzyt mitral regurgitation. Mild thickening of the aortic valve leaflets. There is trace physiological aortic valve regurgitation. Normal gradients across the aortic valve were noted. There is mild tricuspid regurgitation with a estimated peak pulmonary artery pressure of 19 mmHg. Holter monitor from 08/20/2022 demonstrated sinus rhythm with rare ventricular premature contractions and supraventricular contractions. The average heart rate was 70 beats per minute with a maximum 122 and a minimum of 50. History of Present Illness #1. osteopenia. No new complaints of any additional back,hip or other musculoskeletal complaints related to the osteoporosis. No hx of any recent trauma. Currently taking OsCal-D. Has showed osteopenia. The FRAX Score for Hip Fracture is < 3% FRAX score for major fractures < 20%#2. Left shoulder pain aggravated by abduction rotation lifting above her head as well as reaching behind her back. No history of any associated trauma.Active Medication ListVitamin B12 1000 MCG DailyVitamin D DailyGlucosamine Chondrotin Sulfate DailyOs-jose D One Bid Adverse Drug Reactions ReviewedCodeine Nausea And Vomitng Vaccination and Zrqawnpcuylx2438-41 Lrxkpqanz0899-01 Covid Kikeer9511-59 Covid Booster Vnltzg5862-63 Prevnar 13 Am3018-53 Pneumovax Surgical Micsupn0773-56 Right Knee Zdvyntpcgne8625-49 Left Total Hxhy4537-21 Cataract Rwdxu4916-45 Rt. Retina Qlkrrtb7027-90 Left Media Svoptafw2180-96 Bladder Kfarsjzcyu6002-62 Rt. Breast Biopsy Preventative Fkoadew2608/30/2023 MAMMOGRAM 5007/26/2023 ALBUMIN 4.2 G/DL N105/28/2021 XIXUNOWVZUETL03/16/2021 DEXA SCAN12/22/2013 COLONOSCOPY (10 YEARS) 12/23/2023 Social HistoryDoes not smoke cigarettes. Drinking Hx: 1 Cup of coffee per day.Exercise: WeeklySexual Hx: Sexually ActiveOccupation: Teacher Family HistoryMother 89 years old infirmities and CHFFather 95 years old ASHD and Hx of CABG2 Brothers 2 Living one has hepatoma1 Sisters 1 Living good health Avtar Alves MD [address] [facility], [facility] [address], [place], [address], [place] [facility] 12/12/2023 11:09:33 OBGyn Episode No OBEpisode recorded.
[2024-08-31 18:10] LABS: INR 0.9
[2024-08-31 18:11] LABS: Alanine Aminotransferase 21 U/L (6-35); Albumin Level 4.7 g/dL (3.5-5.1); Alkaline Phosphatase 63 U/L (38-126); Anion Gap 11 mmol/L (4-12); Aspartate Amino Transferase 29 U/L (14-36); Bilirubin,Total 0.5 mg/dL (0.2-1.3); Blood Urea Nitrogen 13 mg/dL (7-17); Calcium 9.4 mg/dL (8.4-10.2); Carbon Dioxide 26 mmol/L (22-30); Chloride 106 mmol/L (98-107); Estimated CRCL calculation 55 ml/min; Estimated Glomerular Filt Rate > 60; Glucose 98 mg/dL (65-110); Magnesium 2.2 mg/dL (1.6-2.3); Partial Thromboplastin Time 34.1 Seconds (22.3-36.8); Potassium 3.7 mmol/L (3.4-5.0); Sodium 143 mmol/L (137-145)
[2024-08-31 18:44] LABS: Basophils Absolute Auto 0.1 K/mm3 (0.0-0.1); Basophils Percent Auto 0.7 % (0.2-1.2); Eosinophils Absolute Auto 0.1 K/mm3 (0-0.3); Eosinophils Percent Auto 0.8 % (0-4.4); Hematocrit 42.2 % (37.0-47.0); Hemoglobin 13.8 g/dL (12.0-15.0); Immature Granulocyte Absolute 0.01 K/mm3 (0.00-0.031); Immature Granulocyte Percent A 0.1 % (0-0.5); Lymphocytes Absolute Auto 1.97 K/mm3 (0.9-3.2); Lymphocytes Percent Auto 27.4 % (18.3-44.2); Mean Corpuscular HGB Conc 32.7 g/dl (32-36); Mean Corpuscular Hemoglobin 31.7 pg (26-34); Mean Corpuscular Volume 96.8 fl (80-100); Mean Platelet Volume 10.6 fl (7.4-10.4); Monocytes Absolute Auto 0.6 K/mm3 (0.1-0.6); Monocytes Percent Auto 7.6 % (2.6-8.5); Neutrophils Absolute Auto 4.6 K/mm3 (1.3-6.7); Neutrophils Percent Auto 63.4 % (45.5-73.1); Platelet Count Result 290 k/mm3 (150-375); Red Blood Count 4.36 M/mm3 (4.2-5.4); Red Cell Distribution Width 12.5 % (11.5-14.5); White Blood Count 7.2 K/mm3 (4.5-10.0)
[2024-08-31 20:01] VITALS: BP 121/66; PULSE 67; RESP 14; O2SAT 100
--- OUTSIDE RECORDS SUMMARY | 2024-08-31 20:06 | XMS_ITS | Continuity of Care Document ---
Author Organization [facility] Address [address] [place] [address] Phone Care Team Providers Care Mill Worker Name Role Phone [facility] Unavailable Unavail able Mine David Unavailable Unavailable Procedures Procedure Date Progressive Lens, Polycarb Post-op Follow-up Visit Refraction Post-op Follow-up Visit Remove Cataract, Insert Lens Office/outpatient Visit, Est IOLMaster No Charge Glasses Check Vision Svcs Frames Purchases SV Poly Carb Sph [place] To +/- 4 010 Tax - Medical Vision Svcs Frames Purchases Progressive Lens, Polycarb BF Polycarb Sphcyl [place] To +/-4d .12-2d Anti-reflective Coating Miscellaneous Vision Service - Supplies Lens-Index 1.54-1.79 Glass Office/outpatient Visit, Est Special Reports Or Forms Office Consultation Ophthalmoscopy Eye Exam & Treatment Eye Exam & Treatment Refraction Advance Directives Directive Yes / No Effective Date File Name No Information Encounters Encounter Description Practice Location Reason(s) For Visit Diagnoses Date Provider Providers Copied on [facility], [address], [place], [place], [id number], [place] tel:[phone] [facility] No Information Vean-0 9-201 0 [facility] . [address], [address], [place], [place], [address], [place]. tel:[phone] Referring Provider: Sohail Harvey OD A, [address], [place], [place], [facility] tel:[phone] g Provider: Mine David, [address] [place], [address]. tel:[phone] [facility], [address] [place] [address] [address], [place], [place], [address], [place] tel:[phone] [facility] No Information May-2 8-201 0 Harvey OD Sohail. [address] [facility] , [address], [place], [place], [facility], [place]. tel:[phone] [facility], [address] [place] [address] [address], [place], [place], [address], [place] tel:[phone] [facility] No Information September-1 2-201 0 Doisy Edsherine. [address] [facility] , [address], [place], [address], [place]. tel:[phone] [facility], [address] [place] [address] [address], [place], [place], [id number], [place] tel:[phone] [facility] No Information May-1 1-201 0 Doisy Edward. [address] [facility] , [address], [place], [address], [place]. tel:[phone] Office/outpati ent Visit, [facility], [address] [place] [address] [address], [place], [place], [address], [place] tel:[phone] [facility] No Information Aug-2 6-201 0 Doisy Edsherine. [address] , [address], [place], [address], [place]. tel:[phone] Referring Provider: Johann Weinberg, [address] [facility] [address], [place], [address]. tel:[phone] [facility], [address] [place] [address] [address], [place], [place], [address], [place] tel:[phone] [facility] No Information 0 Dilcia Wills. [address] [facility] , [address], [place], [address], [place]. tel:[phone] [facility], [address] [place] [address] [address], [place], [place], [address], [place] tel:[phone] [facility] No Information 0 [facility] . [address] [facility], [facility] [address], [place], [address], . tel:[phone] [facility], [address] [place] [address] [address], [place], [place], [address], [place] tel:[phone] [facility] No Information 9 [facility] . [address] [facility], [address], [place], [place], [address], . tel:[phone] Referring Provider: Sohail Weinberg, [address] [facility], [place], [address]. tel:[phone] g Provider: Mine David, [address] [place], [address]. tel:[phone] Office/outpati ent Visit, Est [facility], [address] [place] [address] [address], [place], [place], [address], [place] tel:[phone] [facility] No Information -200 9 Dilcia Wills. [address] [facility] , [address], [place], [address], [place]. tel:[phone] [facility], [address] [place] [address] [address], [place], [place], [id number], tel:[phone] [place] [address] No Information Evan-1 2-200 9 Jordin Valderrama. [address] [place], [place], [facility], . tel:[phone] Office Consultation [facility], [address] [place] [address] [address], [place], [place], [address], tel:[phone] [facility] No Information Evan-0 8-200 9 Jordin Valderrama. [address] [place], [place], [facility], . tel:[phone] Referring Provider: Sohail Weinberg, [facility] [address], [place], [facility] tel:[phone] [facility], [address] [place] [address] [address], [place], [place], [address], [phone] [facility] No Information Evan-0 5-200 9 Harvey OD Sohail. [facility], [place], [place], [facility], . tel:[phone] [facility], [address] [place] [address] [address], [place], [place], [address], [phone] [facility] No Information May-0 8-200 8 Harvey OD Sohail. [facility] [address] , [address], [place], [place], [facility], . tel:[phone] Family History Family Member Type Diagnosis Age At Onset No Information Payers Payer name Insurance type Covered constitution party ID Authoriza tion(s) No Information Social History [...]
--- OUTSIDE RECORDS SUMMARY | 2024-08-31 20:06 | XMS_ITS | Encounter Summary ---
Author Organization [facility] Address [address] [facility] [place] [address] Care Team Providers Care Orthopedic Shoe Fitter Name Role Phone Kodak Alves MD Primary Care Provider [phone] Encounter Details Date Type Department Care Team (Late Contact Info) Description 04/04/2023 Lab Requisition [facility] - Derm[facility] Lab [address] [facility] [place] [id number] Kelby Collazo MD [address] [place] [address] Social History Tobacco Use Types Packs/Day [...] Info) Description 09/01/2024 11:00 AM CDT Appointment [facility] [address] [place], [place] [id number] documented as of this encounter Procedures Procedure Name Priority Date/Time Associated Diagnosis Comments DERMATOPATHOLOGY Routine 04/03/2023 12:0 0 AM LAND MANAGER documented in this encounter Results * DERMATOPATHOLOGY (04/03/2023 12:00 AM LAND MANAGER) Case Report Dermatopathology Report Case: [id number] Authorizing Provider: Kelby Collazo MD Collected: 04/03/2023 12:00 AM Ordering Location: [facility] D[facility] Lab Received: 04/04/2023 04:34 PM Pathologist: Luisa Mittal MD Specimen: Skin, frontal scalp (part line) 1:47 PM LAND MANAGER DERMATOPATHOLOGY LABORATORY Final Diagnosis Specimen A. SKIN, frontal scalp (part line): BASAL CELL CARCINOMA, NODULAR TYPE (C44.41) 1:47 PM LAND MANAGER DERMATOPATHOLOGY LABORATORY Clinical History [facility] Path# [id number] 1:47 PM LAND MANAGER DERMATOPATHOLOGY LABORATORY Gross Description Specimen A: Received is one formalin filled container labeled with the patient's name and designated frontal scalp (part line). The specimen consists of a shave biopsy measuring 6x5x1 mm. Jar 0. 1:47 PM LAND MANAGER DERMATOPATHOLOGY LABORATORY Microscopic Description Specimen A. SKIN, frontal scalp (part line): Within the dermis there are aggregates of basaloid cells with a high nuclear to cytoplasmic ratio and peripheral palisading. 1:47 PM LAND MANAGER DERMATOPATHOLOGY LABORATORY Disclaimer An external and internal positive and negative controls are appropriate for the histochemical, immunohistochemical and immunofluorescence stain(s) in this case (if any), except where stated explicitly. The performance characteristics of the stain(s) cited in this report were developed and its performance characteristic determined by the Dermatopathology Laboratory at [facility], directed by Dr. Jeff Altamirano. These tests need not be, and therefore are not, approved by the [place] Food and Drug Administration. The tests are used for clinical purposes. Billing Codes Specimen Charges Stain Charges 35141 1 1:47 PM [facility] DERMATOPATHOLOGY LABORATORY Embedded Images 1:47 PM [facility] DERMATOPATHOLOGY LABORATORY Pathology/Cytolog y TISSUE SPECIMEN FROM SKIN / Unknown 04/03/2023 04/04/2023 4:34 PM LAND MANAGER Kelby Collazo MD LAB - PATHOLOGY/CYTO LOGY ORDERABLES DERMATOPATHOLOGY LABORATORY [facility] - Department of Dermatology [facility] [facility], [address] [phone] documented in this encounter Visit Diagnoses Not on filedocumented in this encounter Care Teams Orthopedic Shoe Fitter Relationship Specialty Start Date End Date Kodak Alves MD [facility] [address] [place] [address] PCP - General 01/03/10 documented as of this encounter
--- OUTSIDE RECORDS SUMMARY | 2024-08-31 20:06 | XMS_ITS | CONTINUITY OF CARE DOCUMENT ---
Author Name charles lindseyjosé Address Unknown Organization [facility] Address [address] [place] [address] [address] [place] [address] Phone [phone] Care Team Providers Care Motor Runner Name Role Phone Dennis SPRAGUE, Audelia Unavailable [phone] DANIELLE SPRAGUE, AVTAR Unavailable DANIELLE SPRAGUE, AVTAR Unavailable PROBLEMS Condition Status Date Provider Notes Palpitations active Mary Warren Arthritis active Audelia Collins MD Preoperative cardiovascular evaluation active Audelia Collins MD ENCOUNTERS Date Type Provider Location Encounter Diag nosis - In-person encounter Office Visit Audelia Collins MD [place] [facility] ArthritisPreoperative cardiovascular evaluation VITAL SIGNS Date [...] Payer name Policy type / Coverage type Emmet red democrat ID [employer] [place] insurance [place] [id number] [place] Medicare [id number] ADVANCE DIRECTIVES Name Date DISCUSSED - NO DECISION MADE TREATMENT PLAN Date Name Performer [id number],S, Erwin De Jesus i [id number],S, Erwin De Jesus i [id number],S, Erwin De Jesus i Cardiology Erwin Mascorro Cardiology Erwin Mascorro Cardiology Erwin Mascorro Date Name Complete Echo
--- OUTSIDE RECORDS SUMMARY | 2024-08-31 20:06 | XMS_ITS | Clinical Summary ---
Author Organization [facility] Address [address] [place] [address] Care Team Providers Care Circuit Board Assembler Name Role Phone Kodak Alves MD Primary Care Provider [phone] Source Comments [facility],non-owned Affiliates and Associated Physician Practices is amultiple site organization consisting of ambulatory clinics and hospital sitesin [place], [place], [place] and [place]. This disclosure is being madepursuant to the Care Everywhere program and may not contain all information available regarding this patient. Last updated 18.[employer] Allergies No known active allergies Medications * [...] Comments Blood Pressure 126/76 05/18/2010 2:11 PM FLOUR TESTER Pulse 70 05/18/2010 2:11 PM FLOUR TESTER Temperature - - Respiratory Rate - - Oxygen Saturation - - Inhaled Oxygen Concentration - - Weight 67.1 kg (148 lb) 08/30/2023 10:11 AM CDT Height 167.6 cm (5' 6 ) 08/30/2023 10:11 AM CDT Body Mass Index 23.89 08/30/2023 10:11 AM CDT Plan of Treatment Upcoming Encounters Date Type Department Care Team (Late st Contact Info) Description 09/01/2024 11:00 AM CDT Appointment [facility] [address] [address] [place] [address] Health Maintenance Due Date Last Done Comments [...] age to complete this topic Care Teams Circuit Board Assembler Relationship Specialty Start Date End Date Kodak Alves MD [address] [place] [address] [address] [place] [address] PCP - General 01/03/10
--- NOTE | 2024-08-31 20:24 | ED_ITS ---
HPI - Arrhythmia/Palpitations General Chief Complaint: Arrhythmia/Palpitations Stated Complaint: Sent from -Af[facility] RVR-denies CP Time Seen by Provider: 08/31/24 17:28 Related Data Home Medications ?Medication ?Instructions ?Recorded ?Confirmed ?Last Taken ?Type alendronate 70 mg tablet 70 mg PO WEEKLY 08/31/24 08/31/24 Unknown History ketoconazole 2 % shampoo 1 applic topical Q14D 08/31/24 08/31/24 Unknown History Allergies Allergy/AdvReac Type Severity Reaction Status Date / Time codeine AdvReac Unknown Other Verified 08/31/24 15:06 Review of Systems 2 Review of Systems: All systems reviewed & are unremarkable except as noted in HPI and below Course Vital Signs Vital signs: Vital Signs Temperature 97.5 F L 08/31/24 17:31 Pulse Rate 86 08/31/24 17:31 Respiratory Rate 16 08/31/24 17:31 Blood Pressure 128/76 08/31/24 17:31 Pulse Oximetry 100 08/31/24 17:31 Oxygen Delivery Room Air 08/31/24 17:31 Temperature 97.5 F L 08/31/24 17:31 Pulse Rate 67 08/31/24 20:01 Respiratory Rate 14 08/31/24 20:01 Blood Pressure 121/66 08/31/24 20:01 Pulse Oximetry 100 08/31/24 20:01 Oxygen Delivery Room Air 08/31/24 17:31 MDM - Arrhythmia/Palpitations Lab Data 08/31/24 17:51 08/31/24 17:51 Labs: Lab Results 08/31/24 Range/Units 17:51 WBC 7.2 (4.5-10.0) K/mm3 RBC 4.36 (4.2-5.4) M/mm3 Hgb 13.8 (12.0-15.0) g/dL Hct 42.2 (37.0-47.0) % MCV 96.8 (80-100) fl MCH 31.7 (26-34) pg MCHC 32.7 (32-36) g/dl RDW 12.5 (11.5-14.5) % Plt Count 290 (150-375) k/mm3 MPV 10.6 H (7.4-10.4) fl Immature Gran % (Auto) 0.1 (0-0.5) % Neut % (Auto) 63.4 (45.5-73.1) % Lymph % (Auto) 27.4 (18.3-44.2) % Barton % (Auto) 7.6 (2.6-8.5) % Eos % (Auto) 0.8 (0-4.4) % Baso % (Auto) 0.7 (0.2-1.2) % Lymph # (Auto) 1.97 (0.9-3.2) K/mm3 Barton # (Auto) 0.6 (0.1-0.6) K/mm3 Eos # (Auto) 0.1 (0-0.3) K/mm3 Baso # (Auto) 0.1 (0.0-0.1) K/mm3 Abs Immat Gran (auto) 0.01 (0.00-0.031) K/mm3 Absolute Neuts (auto) 4.6 (1.3-6.7) K/mm3 Absolute Nucleated RBC 0.000 (0.0-0.012) K/mm3 Nucleated RBC % 0.0 (0.0-0.2) % PT 13.0 (11.1-14.7) Seconds INR 0.9 APTT 34.1 (22.3-36.8) Seconds Sodium 143 (137-145) mmol/L Potassium 3.7 (3.4-5.0) mmol/L Chloride 106 (98-107) mmol/L Carbon Dioxide 26 (22-30) mmol/L Anion Gap 11 (4-12) mmol/L BUN 13 (7-17) mg/dL Creatinine 0.71 (0.7-1.0) mg/dL Estim Creat Clear Calc 55 ml/min Estimated GFR > 60 (59 - ) Glucose 98 (65-110) mg/dL Calcium 9.4 (8.4-10.2) mg/dL Magnesium 2.2 (1.6-2.3) mg/dL Total Bilirubin 0.5 (0.2-1.3) mg/dL AST 29 (14-36) U/L ALT 21 (6-35) U/L Alkaline Phosphatase 63 (38-126) U/L Total Protein 8.0 (6.3-8.2) g/dL Albumin 4.7 (3.5-5.1) g/dL Discharge Plan Discharge Clinical Impression: Heart palpitations Atrial flutter Qualifiers: Atrial flutter type: unspecified Qualified Code(s): I48.92 - Unspecified atrial flutter Patient Disposition: Home Condition: Stable Instructions: Antibiotic Form, Atrial Flutter (ED), A-fib (Atrial Fibrillation) (ED) Additional Instructions: You were seen in the emergency department. An EKG in Urgent Care showed atrial flutter. Your heart rhythm and rate is normal here. Your blood cell counts are normal. Your liver and kidney enzymes are normal. A chest x-ray was unremarkable. An EKG was not concerning for injury to the heart. I recommend metoprolol to control your heart rate and aspirin to reduce risk of stroke. I recommend following up with your primary care doctor and a rope twisting machine operator. If you develop chest pain, shortness of breath, loss of consciousness, or if you have other emergent concerns for life, limb, or eyesight, return to the emergency department. Patient Language: Macedonian Prescriptions: New metoprolol tartrate 25 mg tablet 12.5 mg PO BID Qty: 30 0RF aspirin 325 mg tablet 325 mg PO DAILY Qty: 60 0RF No Action ketoconazole 2 % shampoo 1 applic TOPICAL Q14D alendronate 70 mg tablet 70 mg PO WEEKLY Follow-up/Referrals: Amauri Avina MD [Physician] - 1 Week Long,Kodak Mcgovern MD [Non-Staff] - 2 Days PHYSICIAN,PARKING LOT SPOTTER [Primary Care Provider] - Time of Disposition: 20:27
[2024-08-31 21:00] VITALS: BP 126/67; PULSE 67; RESP 17; O2SAT 100
[2024-08-31 21:20] VITALS: PULSE 72
[2024-08-31] MEDS: METOPROLOL TARTRATE 12.5 MG TABLET PO (21:20)
== END 2024-08-31 21:21 | disposition home or self-care (01) ==
PROVIDERS: Physician Assistant; Emergency Provider Preventive Medicine Aerospace Medicine
DX: R00.2 Palpitations (principal); I48.92 Unspecified atrial flutter; R94.31 Abnormal electrocardiogram [ECG] [EKG]
CPT/HCPCS: 36415; 71046; 80053; 83735; 85025; 85610; 85730; 93005; 99284; A9270